=== PATIENT | male | born 1940 | race Caucasian/White ===

== ENCOUNTER → 2017-11-03 | Outpatient (CLI) | payer OTHER, MEDICARE ==
[2017-11-03 15:28] LABS: ABSOLUTE NEUTROPHILS 5.3 thou/uL (1.4-8.2); BASOPHILS 1.3 % (0.0-2.0); EOSINOPHILS 6.5 % (0.0-3.0); HEMATOCRIT 44.2 % (42.0-52.0); HEMOGLOBIN 13.9 gm/dL (14.0-18.0); LYMPHOCYTES 18.8 % (24.0-44.0); MCH 24.4 pg (26.0-34.0); MCHC 31.4 g/dL (28.0-37.0); MCV 77.5 fL (80.0-100.0); MONOCYTES 11.2 % (1.0-8.0); PLATELET COUNT 189 thou/uL (150-400); POLYS 62.2 % (36.0-66.0); RDW 17.5 % (10.5-14.5); WBC 8.5 thou/uL (4.0-11.0)
[2017-11-03 15:31] LABS: MANUAL DIFF NO
[2017-11-03 15:50] LABS: URIC ACID* 12.2 mg/dL (2.6-7.2)
== END ==
LOC: SEN 08-02 13:55
PROVIDERS: Registered Nurse
DX: M19.031 Primary osteoarthritis, right wrist (principal)

== ENCOUNTER 2017-12-10 15:37 | Inpatient (IN) | payer OTHER, MEDICARE ==
[~2017-12-10] VITALS: Ht 182.9 cm; Wt 149.7 kg
--- NOTE | ~2017-12-10 | EKG ---
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
[2017-12-10 15:38] VITALS: BP 106/73
[2017-12-10 16:37] LABS: ABSOLUTE NEUTROPHILS 8.4 thou/uL (1.4-8.2); BASOPHILS 0.9 % (0.0-2.0); EOSINOPHILS 1.5 % (0.0-3.0); HEMATOCRIT 42.8 % (42.0-52.0); HEMOGLOBIN 13.5 gm/dL (14.0-18.0); LYMPHOCYTES 8.2 % (24.0-44.0); MCH 24.6 pg (26.0-34.0); MCHC 31.6 g/dL (28.0-37.0); MCV 77.9 fL (80.0-100.0); PLATELET COUNT 173 thou/uL (150-400); POLYS 82.4 % (36.0-66.0); RDW 18.7 % (10.5-14.5); WBC 10.2 thou/uL (4.0-11.0)
[2017-12-10 16:45] LABS: ANION GAP 7 mmol/L (7-16); BUN 45 mg/dL (7-18); CALCIUM 9.4 mg/dL (8.5-10.1); CHLORIDE 99 mmol/L (98-107); CO2 33 mmol/L (21-32); CREATININE 1.8 mg/dL (0.7-1.3); GLUCOSE 157 mg/dL (74-106); POTASSIUM 3.2 mmol/L (3.5-5.1); SODIUM 139 mmol/L (136-145)
[2017-12-10 16:54] LABS: ALBUMIN 3.4 g/dL (3.4-5.0); SGOT 15 U/L (15-37); SGPT 22 U/L (30-65); TOTAL BILIRUBIN 0.5 mg/dL (<0.1-1.0); TROPONIN-I < 0.04 ng/mL (<0.06)
[2017-12-10 17:00] LABS: INR 1.6; PROTIME 16.1 Seconds (9.3-11.4)
[2017-12-10] MEDS ORDERED: LASIX 40 MG TAB40 M2 PO (17:10)
[2017-12-10] MEDS ORDERED: METOLAZONE 2.52.5 M1 PO (17:10)
[2017-12-10] MEDS ORDERED: VENTOLIN HFA 1818 GM INH (17:10)
[2017-12-10] MEDS ORDERED: VESICARE 5 MG TA5 MG PO (17:10)
[2017-12-10] MEDS ORDERED: PACERONE 200 M200 M1 PO (17:10)
[2017-12-10] MEDS ORDERED: ZOLOFT25 MG PO (17:10)
[2017-12-10] MEDS ORDERED: GLUCOTROL5 MG PO (17:10)
[2017-12-10] MEDS ORDERED: TOPROL XL25 MG PO (17:11)
[2017-12-10] MEDS ORDERED: LIPITOR80 MG PO (17:11)
[2017-12-10] MEDS ORDERED: XARELTO20 MG PO (17:11)
[2017-12-10] MEDS ORDERED: PROTONIX40 M1 PO (17:11)
[2017-12-10] MEDS ORDERED: VITAMIN D2000 UNIT PO (17:11)
[2017-12-10] MEDS ORDERED: ALDACTONE25 MG PO (17:12)
[2017-12-10] MEDS ORDERED: AMBIEN 5 MG TABL5 M1 PO (17:12)
[2017-12-10] MEDS ORDERED: XANAX 0.5 MG0.5 MG PO (17:12)
[2017-12-10] MEDS ORDERED: NEURONTIN 300300 M1 PO (17:12)
[2017-12-10 20:34] VITALS: BP 114/63
[2017-12-10 21:25] VITALS: BP 114/60
[2017-12-10 22:19] VITALS: BP 121/68
[2017-12-10 23:51] VITALS: BP 134/57
[2017-12-11 04:05] VITALS: BP 119/60
[2017-12-11 05:40] LABS: HEMATOCRIT 38.3 % (42.0-52.0); HEMOGLOBIN 12.2 gm/dL (14.0-18.0); MCH 24.8 pg (26.0-34.0); MCHC 31.8 g/dL (28.0-37.0); MCV 77.8 fL (80.0-100.0); RBC 4.93 mil/uL (4.50-6.00); RDW 18.6 % (10.5-14.5); WBC 7.9 thou/uL (4.0-11.0)
[2017-12-11 05:53] LABS: CALCIUM 8.4 mg/dL (8.5-10.1); CREATININE 1.6 mg/dL (0.7-1.3); POTASSIUM 3.6 mmol/L (3.5-5.1)
[2017-12-11 08:00] VITALS: BP 120/58
[2017-12-11 16:14] VITALS: BP 122/60; BP 127/68
[2017-12-11 18:56] VITALS: BP 121/64
[2017-12-12 03:47] VITALS: BP 137/70
[2017-12-12 06:42] LABS: ABSOLUTE NEUTROPHILS 6.9 thou/uL (1.4-8.2); BASOPHILS 1.2 % (0.0-2.0); EOSINOPHILS 4.2 % (0.0-3.0); HEMATOCRIT 38.1 % (42.0-52.0); LYMPHOCYTES 10.9 % (24.0-44.0); MCH 24.5 pg (26.0-34.0); MCHC 31.5 g/dL (28.0-37.0); MCV 77.8 fL (80.0-100.0); MONOCYTES 9.1 % (1.0-8.0); PLATELET COUNT 144 thou/uL (150-400); POLYS 74.6 % (36.0-66.0); RDW 18.3 % (10.5-14.5); WBC 9.3 thou/uL (4.0-11.0)
[2017-12-12 06:53] LABS: CREATININE 1.5 mg/dL (0.7-1.3); POTASSIUM 3.2 mmol/L (3.5-5.1)
[2017-12-12 09:09] VITALS: BP 132/67
[2017-12-12 15:24] VITALS: BP 110/70
[2017-12-12 19:36] VITALS: BP 132/67
[2017-12-13 03:50] VITALS: BP 121/65
[2017-12-13 04:38] LABS: CALCIUM 8.2 mg/dL (8.5-10.1); CREATININE 1.3 mg/dL (0.7-1.3); POTASSIUM 3.1 mmol/L (3.5-5.1)
[2017-12-13 06:55] LABS: ABSOLUTE NEUTROPHILS 9.4 thou/uL (1.4-8.2); BASOPHILS 1.1 % (0.0-2.0); EOSINOPHILS 2.2 % (0.0-3.0); HEMATOCRIT 39.2 % (42.0-52.0); HEMOGLOBIN 12.4 gm/dL (14.0-18.0); LYMPHOCYTES 5.3 % (24.0-44.0); MCH 24.7 pg (26.0-34.0); MCHC 31.5 g/dL (28.0-37.0); MCV 78.3 fL (80.0-100.0); MONOCYTES 9.3 % (1.0-8.0); PLATELET COUNT 146 thou/uL (150-400); POLYS 82.1 % (36.0-66.0); RBC 5.01 mil/uL (4.50-6.00); RDW 18.4 % (10.5-14.5); WBC 11.4 thou/uL (4.0-11.0)
[2017-12-13 08:00] VITALS: BP 144/85
[2017-12-13] MEDS ORDERED: AZITHROMYCIN 2250 MG PO (08:50)
[2017-12-13] MEDS ORDERED: KEFLEX500 M1 PO (08:50)
[2017-12-13 11:46] VITALS: BP 144/85
[2017-12-13 11:55] VITALS: BP 144/85
[2017-12-13 13:03] VITALS: BP 144/85
== END 2017-12-13 15:45 | disposition home health service (06) | DRG 871 ==
LOC: ER 15:37 → EROBS 19:37 → 4N 19:37
PROVIDERS: Family Medicine; Nurse Practitioner Family; Physician Assistant
DX: A41.9 Sepsis, unspecified organism (principal); J18.9 Pneumonia, unspecified organism; J96.00 Acute respiratory failure, unspecified whether with hypoxia or hypercapnia; N17.9 Acute kidney failure, unspecified; Z68.41 Body mass index [BMI] 40.0-44.9, adult; I10 Essential (primary) hypertension; E87.6 Hypokalemia; I25.10 Atherosclerotic heart disease of native coronary artery without angina pectoris; E66.01 Morbid (severe) obesity due to excess calories; I48.91 Unspecified atrial fibrillation; Z96.653 Presence of artificial knee joint, bilateral; Z96.649 Presence of unspecified artificial hip joint; F32.9 Major depressive disorder, single episode, unspecified; E11.9 Type 2 diabetes mellitus without complications; F41.9 Anxiety disorder, unspecified; Z90.5 Acquired absence of kidney; I25.2 Old myocardial infarction; Z95.5 Presence of coronary angioplasty implant and graft; Z87.891 Personal history of nicotine dependence; Z86.718 Personal history of other venous thrombosis and embolism
CPT/HCPCS: 10790

== ENCOUNTER 2018-01-16 06:00 | Inpatient (IN) | payer OTHER, MEDICARE ==
[2018-01-16] VITALS (17 sets, daily range): BP systolic 122–152; BP diastolic 66–98
[~2018-01-16] VITALS: Ht 182.9 cm; Wt 138.2 kg
--- NOTE | ~2018-01-16 | HC ---
[facility] [place] [address] CONSULTATION Name: JOHN ORTIZ Room #: 238-P ADM IN M.R.#: [id number] Admission: 01/16/18 Attend Phys: Debora Yuan MD Discharge: Date of : 38 Report #: [id number] THIS REPORT FOR: //name// CC: Tushar Yuan MD DATE OF SERVICE: 01/16/2018 PULMONARY CONSULTATION REFERRING PROVIDER: Dr. Yuan. REASON FOR CONSULTATION: Hypercapnic respiratory failure. CHIEF COMPLAINT: Shortness of breath. HISTORY OF PRESENT ILLNESS: Our group was asked to see the patient in consultation while hospitalized at [facility], presented to our Emergency Department early this morning, brought in by EMS for shortness of breath, had been recently seen in the hospital about one month ago for similar symptoms of underlying COPD. The patient notes some cough, unable to clear sputum. Notes no fevers, chills or sweats. On presentation to the Emergency Room, with hypercapnic and severe respiratory distress with an elevated B-type natriuretic peptide and chest x-ray which revealed some scattered interstitial opacities suggestive possibly of some pulmonary edema. While in the Emergency Department, the patient as mentioned was placed on a BiPAP, Rocephin, azithromycin and Lasix. The patient was much more comfortable in the ICU when I saw him later this morning and denies any chest pain at this time. When queried, the patient states he has no cardiac history, apparently he has a history of prior myocardial infarction and has a pacemaker in place and making his history somewhat unreliable. States he only is on albuterol inhaler at home, cannot recall any other medicines. OUTPATIENT MEDICATIONS: Include VESIcare, glipizide, metoprolol, Protonix, vitamin D, albuterol, metolazone, amiodarone, Lipitor, spironolactone, alprazolam, gabapentin, sertraline and potassium. PAST MEDICAL HISTORY: 1. Hypertension. 2. Coronary artery disease with prior myocardial infarction. 3. History of hip and knee replacements. 4. History of sick sinus syndrome, status post pacer defibrillator. 5. Morbid obesity. 6. The patient denies any sleep apnea history. [facility] [address] [place] [address] CONSULTATION Name: JOHN ORTIZ Room #: 238-P [facility] IN ..#: [id number] Admission: 01/16/18 Attend Phys: Debora Yuna MD Discharge: Date of : 38 Report #: [id number] SOCIAL HISTORY: States he is an ex-smoker, quitting over 10 years ago. Rare alcohol consumption. Lives with family. Retired. FAMILY HISTORY: Not pertinent at this time and difficult to obtain. REVIEW OF SYSTEMS: CONSTITUTIONAL: No fever, chills or sweats. ENT: No upper respiratory congestion. CARDIOVASCULAR: No chest pains or palpitations. RESPIRATORY: Some cough and shortness of breath for the last 3 days, unable to clear any sputum. GASTROINTESTINAL: No nausea, vomiting, diarrhea, constipation or abdominal pain. GENITOURINARY: No dysuria, no frequency or hematuria. INTEGUMENT: Denies any rash. MUSCULOSKELETAL: Some increasing lower extremity edema. PHYSICAL EXAMINATION: VITAL SIGNS: Afebrile, pulse 80s, respiratory rate 20s, blood pressure 133/74. GENERAL: This is an obese elderly male, in no distress, on BiPAP. ENT: Mallampati 3 airway, no thrush. NECK: Supple, no lymphadenopathy. LUNGS: Inspiratory crackles and occasional wheeze. CARDIOVASCULAR: Heart regular. No murmurs noted. ABDOMEN: Soft, obese. No masses. EXTREMITIES: With 2+ edema. LABORATORY DATA: White blood cell count 8000, hemoglobin 13, hematocrit 42, platelet count 133. Arterial blood gas on BiPAP settings 14/6, 60%, revealed pH 7.30, pCO2 of 72, pO2 of , bicarbonate 35. Sodium 139, potassium 4.1, chloride , bicarbonate 34, BUN 25, creatinine 1.4, glucose . ProBNP was 3025. Liver enzymes normal. Chest x-ray revealed hyperinflation with widening of the mediastinum, pulmonary artery enlargement consistent with pulmonary hypertension, cardiomegaly and minimal interstitial changes. IMPRESSION: 1. Acute hypercapnic respiratory failure, likely due to chronic obstructive pulmonary disease with exacerbation. 2. Chronic obstructive pulmonary disease with acute exacerbation. 3. Lower respiratory infection, most consistent with bronchitis. 4. Acute decompensated congestive heart failure. 5. Renal insufficiency, uncertain whether acute or chronic. 6. Encephalopathy. SUGGESTIONS: 1. ICU care. [address] [address] CONSULTATION Name: JOHN ORTIZ Room #: 238-P ADM IN M.R.#: [id number] Admission: 01/16/18 Attend Phys: Debora Yuan MD Discharge: Date of : 38 Report #: [id number] 2. Systemic steroid taper. 3. Bronchodilators. 4. Continue with antimicrobial therapy for now. 5. Nasal swab for respiratory viral panel. 6. Sputum for culture if able. 7. Check echocardiogram. 8. BiPAP at bedtime and p.r.n. 9. Additional recommendations to follow. Thank you for requesting our suggestions. <ELECTRONICALLY SIGNED> By: Alberto Valencia MD 01/21/18 1452 1431 1652 Alberto Valencia MD /nt
--- NOTE | ~2018-01-16 | EKG ---
[address] [place] [address] ELECTROCARDIOGRAM REPORT Name: JOHN ORTIZ Room #: 238-P ADM IN M.R.#: [id number] Admission: 01/16/18 Attend Phys: Debora Yuan MD Discharge: Date of : 38 Report #: [id number] THIS REPORT FOR: //name// [facility] Test Date: 2018-01-20 Test Time: 14:38:47 Pat Name: JOHN ORTIZ Department: Room: 238 P Gender: M Director Operations: Tanja CEDILLO : 1940 Requested By: Andi Prather Order Number: [id number] MD: Abundio Vallejo Measurements Intervals [place] Rate: 117 P: DC: QRS: -89 QRSD: 167 T: 92 QT: 450 QTc: 628 Interpretive Statements Wide complex tachycardia Right bundle branch block No previous ECGs available for comparison Electronically Signed On 01-21-2018 8:11:05 TAPPER OPERATOR by Abundio Vallejo [email or web address] <ELECTRONICALLY SIGNED> By: Abundio Vallejo MD, [facility] 01/21/18 0811 1438 1438 Abundio Vallejo MD, FACC /EPI
--- NOTE | ~2018-01-16 | 2DMMODE ---
[facility] [employer] [place] [address] 2 D/M-MODE ECHOCARDIOGRAM Name: JOHN ORTIZ Room #: 243-P ADM IN M.R.#: [id number] Admission: 01/16/18 Attend Phys: Debora Yuan MD Discharge: Date of : 38 Date of Service: 01/17/18 1131 Report #: [id number] THIS REPORT FOR: //name// APPROVED REPORT Study performed: 01/17/2018 10:18:44 EXAM: Comprehensive 2D, Doppler, and color-flow Echocardiogram Patient Location: ICU Room #: 243 Status: routine BSA: 2.58 HR: 80 bpm BP: 133/77 mmHg Rhythm: Pacemaker Other Information Study Quality: Fair Technically limited study due to morbid obesity and limited mobility. Indications CHF. Hx: NE, stent, COPD, CHF, pacemaker, obesity, HTN Echo Enhancing Agent Indication: Endocardial border delineation Agent(s) / Amount(s) Used: Definity 4 cc 2D Dimensions LVEF(%): 17.50 (>50%) IVSd: 7.86 (7-11mm) LVOT Diam: 21.29 (18-24mm) LVDd: 66.69 mm PWd: 9.94 (7-11mm) LVDs: 61.28 (25-40mm) Aortic Root: 36.43 mm Johnson's LVEF: 17.50 % Volumes Left Atrial Volume (Systole) Single Plane 4CH: 57.85 mL Single Plane 2CH: 126.58 mL LA ESV Index: 37.00 mL/m2 Aortic Valve AoV Peak Terence.: 1.45 m/s AO Peak Gr.: 8.43 mmHg LVOT Max P.73 mmHg [facility] [address] [place] [address] 2 D/M-MODE ECHOCARDIOGRAM Name: JOHN ORTIZ Room #: [facility] ADM IN ..#: [id number] Admission: 01/16/18 Attend Phys: Debora Yuan MD Discharge: Date of : 38 Date of Service: 01/17/18 1131 Report #: [id number] LVOT Max V: 0.66 m/s GEOVANNI Vmax: 1.61 cm2 Mitral Valve E/A Ratio: 1.2 MV Decel. Time: 95.22 ms MV E Max Terence.: 1.04 m/s MV A Terence.: 0.86 m/s MV PHT: 27.61 ms IVRT: 103.81 ms Tricuspid Valve TR Peak Terence.: 3.26 m/s RAP Estimate: 15.00 mmHg TR Peak Gr.: 42.49 mmHg PA Pressure: 57.00 mmHg Left Ventricle Left ventricle is dilated. There is normal left ventricular wall thickness. Left ventricular systolic function is severely decreased. LVEF is 20-25%. Moderate diastolic dysfunction is present (pseudonormal filling). Right Ventricle Right ventricle is not well visualized. Atria Left atrium is dilated. Right atrium is dilated. Aortic Valve The aortic valve is not well visualized but appears sclerotic. Mild aortic regurgitation. There is no aortic valvular stenosis. Mitral Valve The mitral valve is normal in structure. Mild mitral annular calcification. Moderate mitral regurgitation. No evidence of mitral valve stenosis. Tricuspid Valve The tricuspid valve is normal in structure. Moderate tricuspid regurgitation. Estimated PAP is 55-60mmHg. Pulmonic Valve Pulmonic valve is not well visualized. Great Vessels The aortic root is normal in size. Ascending aorta is not well [facility] [address] [address] 2 D/M-MODE ECHOCARDIOGRAM Name: JOHN ORTIZ Room #: 243-P ADM IN .R.#: [id number] Admission: 01/16/18 Attend Phys: Debora Yuan MD Discharge: Date of : 38 Date of Service: 01/17/18 1131 Report #: [id number] visualized. IVC is dilated and collapses <50% with inspiration. Pericardium There is no pericardial effusion. <Conclusion> Left ventricle is dilated. Left ventricular systolic function is severely decreased. LVEF is 20-25%. Moderate diastolic dysfunction is present (pseudonormal filling). Right ventricle is not well visualized. Left atrium is dilated. Right atrium is dilated. The aortic valve is not well visualized but appears sclerotic. Mild aortic regurgitation. Moderate mitral regurgitation. Moderate tricuspid regurgitation. Estimated PAP is 55-60mmHg. IVC is dilated and collapses <50% with inspiration. There is no pericardial effusion. <ELECTRONICALLY SIGNED> By: Jm Healy MD, FACC 01/17/18 1131 1131 1131 Jm Healy MD, FACC /INF
--- NOTE | ~2018-01-16 | EKG ---
[place] [address] [address] [facility] [place] [address] ELECTROCARDIOGRAM REPORT Name: JOHN ORTIZ Room #: 243-P ADM IN M.R.#: [id number] Admission: 01/16/18 Attend Phys: Debora Yuan MD Discharge: Date of : 38 Report #: [id number] THIS REPORT FOR: //name// 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 : 1940 Requested By: Roxie Deleon Order Number: [id number] MD: Corbin Rai Measurements Intervals [place] Rate: 106 P: 257 ME: 153 QRS: 254 QRSD: 169 T: 70 QT: 370 QTc: 492 Interpretive Statements Ventricular-paced complexes No further analysis attempted due to paced rhythm Compared to ECG 12/10/2017 15:49:12 Atrial-sensed ventricular-paced complex(es) or rhythm no longer present Electronically Signed On 01-16-2018 10:13:18 FORM LAYER by Corbin Rai [email or web address] <ELECTRONICALLY SIGNED> By: Corbin Rai MD 01/16/18 1013 2 2 Corbin Rai MD /PASTORA
--- NOTE | ~2018-01-16 | H ---
[facility] [place] [address] HISTORY AND PHYSICAL Name: JOHN ORTIZ Room #: 359-P [facility] IN M.R.#: [id number] Admission: 01/16/18 Attend Phys: Debora Yuan MD Discharge: 01/24/18 Date of : 38 Report #: [id number] THIS REPORT FOR: //name// CC: Tushar Yuan DATE OF SERVICE: 01/16/2018 CHIEF COMPLAINT: Shortness of air. HISTORY OF PRESENT ILLNESS: The patient is a 77-year-old male who presented to ER with shortness of breath. He was brought by EMS. The patient reports worsening of the cough for past 3 days. He stated that the cough is nonproductive. He had increasing shortness of breath beginning yesterday. Of note, recently he was at [facility] in November, was diagnosed with pneumonia, started on oxygen at home. He apparently had 2 liters of oxygen at home. The patient is a very poor historian and he is confused. He cannot give me a good medical history. He usually goes to [facility] and he was not even aware that this time he is at [facility]. He reports history of COPD due to smoking; however, stated, quit 15 years ago, history of CHF; however, cannot specify if it is systolic or diastolic. History of OK with stent placement, pacemaker and defibrillator. Also kidney cancer. The patient was hypoxic, hypercapnic in ER. He was placed on BiPAP in the ER. He was given breathing treatment and was given Solu-Medrol apparently by EMS 125 mg. The patient stated that he has chronic leg edema and that he is not ambulatory. He stated has chronic weakness in the legs. The patient cannot recall when he walked last time. He stated that he used to walk with walker, but not recently and he cannot really tell me when he walked last time. He lives with his significant other and stated that significant other helped him. The patient now is in ICU. He is saying that he is feeling better. PAST MEDICAL HISTORY: Obtained from the records and talking to the patient. As stated above, the patient is a very poor historian and he usually goes to [facility]. He has history of hypertension, OK with stent placement, hip replacement, knee replacement, atrial fibrillation, pacemaker and defibrillator, morbid obesity, chronic weakness in the legs, nonambulatory. Chronic leg edema. Injury to the right leg with skin graft, cannot recall when it happened. He could not tell me when he had OK and when stent was placed. He apparently has history of carpal tunnel surgery, chronic leg swelling. MEDICATIONS: His reported medications are amiodarone, metolazone, albuterol sulfate as needed, VESIcare, glipizide, metoprolol, Protonix, vitamin D3, Lipitor, Xarelto, spironolactone, alprazolam, gabapentin, sertraline, potassium supplements. Of note, it is stated that the patient is telling me that he is not diabetic. [address] [address] HISTORY AND PHYSICAL Name: JOHN ORTIZ Room #: 359-P [facility] IN M.R.#: [id number] Admission: 01/16/18 Attend Phys: Debora Yuan MD Discharge: 01/24/18 Date of : 38 Report #: [id number] ALLERGIES: The patient reports no allergies. SOCIAL HISTORY: He smokes cigarettes, but stated that he stopped smoking 15 years ago. Stated that drinks alcohol very socially. Denies any illicit drug use. He lives with significant other. FAMILY HISTORY: The patient cannot provide to me. He stated that his family are healthy. REVIEW OF SYSTEMS: As stated in H and P. He complains of cough, congestion, worsening of the shortness of breath for past 3 days. He is telling me that he is not bringing sputum, though he reported to ER that there is white sputum production. Denies any runny nose. No headache or dizziness. Denies any chest pain. He stated that shortness of air was for past 3 days, progressively worse. Denies any abdominal pain, telling me that does not have pain with urination and does not have any diarrhea or constipation. He has chronic swelling in the legs, cannot tell me for how long. He has large skin graft on the right leg from trauma. The patient is not mobile. Please see discussion above. He denies any pain with urination. No nausea or vomiting. He denies any back pain. Has chronic weakness in the legs. PHYSICAL EXAMINATION: VITAL SIGNS: Temperature 97.2, pulse 95, respirations 25, blood pressure between 152/98 and 189/91. GENERAL: The patient is not in any distress. He is awake and alert; however, he is confused. He could tell me that it was month of December and could tell me the year, but could not tell me what day it was. The patient also did not know that he is in [facility] and he could not even tell me his home address. HEENT: Head: Normocephalic. Oral mucosa pink. Tongue is clear without thrush. Pupils are round and equal. NECK: Supple, no JVD, no bruits. LUNGS: Showed very coarse breath sounds with rhonchi and end expiratory wheezes. CARDIAC: S1, S2 normal. Rhythm is regular. Telemetry shows paced rhythm with underlying AFib. ABDOMEN: Morbidly obese, soft, but not tender on palpation, not distended. Bowel sounds normoactive. EXTREMITIES: Showed 4+ edema on the legs, pitting edema. There is chronic skin discoloration on the legs, but no warmth, no signs of cellulitis. On right leg, there is a large skin graft, which is well healed. I was not able to palpate peripheral pulses possibly because of the swelling. The patient's feet are very swollen. Examination of the skin shows redness in his groin area. NEUROLOGICAL: The patient is confused. Please see discussion above. He has good strength in his arms. He was able to move the legs in the bed as well and raise them over the bed. [address] [address] HISTORY AND PHYSICAL Name: JOHN ORTIZ Room #: 359-P [facility] IN M.R.#: [id number] Admission: 01/16/18 Attend Phys: Debora Yuan MD Discharge: 01/24/18 Date of : 38 Report #: [id number] LABORATORY AND DIAGNOSTIC DATA: ABG done in the ER when he arrived, pH was 7.285, pCO2 of 73, pO2 of 67.9. He was on 3 liters of nasal cannula. He was placed on BiPAP dose. ABG was done on 6:10 and then repeated ABG on 7:55 showed pH 7.303, pCO2 72.3, pO2 132.5, that was on 60% FiO2 with BiPAP setting 06/27. His sodium was 139, potassium 4.1, BUN 25, creatinine 1.4, glucose 154, calcium 9.3, uric acid 4.2, alkaline phosphatase 148, ALT 28, AST 35. Lactic acid 1.7, troponin 0.05. ProBNP is 3095. CRP 11.4, WBC 8.0, hemoglobin 13.3, platelets 133,000. INR was 1.6. IMPRESSION AND PLAN: 1. Acute hypoxic hypercapnic respiratory failure. 2. Chronic obstructive pulmonary disease exacerbation. 3. Bronchitis with bronchospasm. No infiltrate on chest x-ray. 4. Elevated BNP. 5. Significant leg edema. 6. Renal insufficiency. 7. Volume overload. 8. Confused, baseline unknown. PLAN: 1. The patient admitted to ICU. We will put the patient on BiPAP. We will give breathing treatment. We will give Xopenex due to history of AFib. Atrovent. We will give steroids. We will check hemoglobin A1c. Give Lasix for volume overload. We will get records from [facility]. The patient has leg edema. We will check venous Doppler ultrasound, though he is on Xarelto, but this patient's confusion is not clear if the patient was getting Xarelto or not. 2. Also we will check CAT scan of the head due to confusion. Blood cultures were obtained in Emergency Department. We will put on Solu-Medrol, sliding scale of insulin. A consult was placed for surgeon partner, Dr. Valencia. <ELECTRONICALLY SIGNED> By: Debora Yuan MD 02/13/18 1524 1051 1138 Debora Yuan MD /nt
[~2018-01-16 06:00] MED LIST: ALDACTONE25 MG PO; AMBIEN 5 MG TABL5 M1 PO; AZITHROMYCIN 2250 MG PO; GLUCOTROL5 MG PO; KEFLEX500 M1 PO; LASIX 40 MG TAB40 M2 PO; LIPITOR80 MG PO; METOLAZONE 2.52.5 M1 PO; NEURONTIN 300300 M1 PO; PACERONE 200 M200 M1 PO; PROTONIX40 M1 PO; TOPROL XL25 MG PO; VENTOLIN HFA 1818 GM INH; VESICARE 5 MG TA5 MG PO; VITAMIN D2000 UNIT PO; XANAX 0.5 MG0.5 MG PO; XARELTO20 MG PO; ZOLOFT25 MG PO
[2018-01-16] MEDS ORDERED: KLOR-CON 1010 MEQ PO (06:11)
[2018-01-16] MEDS ORDERED: VESICARE 5 MG TA5 M1 PO (06:14)
[2018-01-16 06:18] LABS: BE(vivo) 4.8 mmol/L (-2 to +3); HCO3 33.9 mmol/L (22.0-26.0); PO2 67.9 mmHg (80.0-100.0); pH 7.285 (7.360-7.450); sO2 90.6 % (92.0-98.0)
[2018-01-16 06:41] LABS: ABSOLUTE NEUTROPHILS 5.9 thou/uL (1.4-8.2); BASOPHILS 0.9 % (0.0-2.0); HEMATOCRIT 42.3 % (42.0-52.0); HEMOGLOBIN 13.3 gm/dL (14.0-18.0); LYMPHOCYTES 13.7 % (24.0-44.0); MCH 25.4 pg (26.0-34.0); MCHC 31.4 g/dL (28.0-37.0); MCV 80.8 fL (80.0-100.0); MONOCYTES 9.2 % (1.0-8.0); PLATELET COUNT 133 thou/uL (150-400); POLYS 73.2 % (36.0-66.0); RBC 5.24 mil/uL (4.50-6.00)
[2018-01-16 06:50] LABS: CALCIUM 9.3 mg/dL (8.5-10.1); CREATININE 1.4 mg/dL (0.7-1.3); POTASSIUM 4.1 mmol/L (3.5-5.1)
[2018-01-16 06:58] LABS: TROPONIN-I 0.05 ng/mL (<0.06)
[2018-01-16 07:03] LABS: ALBUMIN 3.6 g/dL (3.4-5.0); DIRECT BILIRUBIN 0.3 mg/dL (<0.1-0.3); TOTAL BILIRUBIN 0.7 mg/dL (<0.1-1.0); TOTAL PROTEIN 7.7 g/dL (6.4-8.2)
[2018-01-16 08:02] LABS: BE(vivo) 6.2 mmol/L (-2 to +3); PO2 132.5 mmHg (80.0-100.0); sO2 98.3 % (92.0-98.0)
[2018-01-16 08:03] LABS: PCO2 72.3 mmHg (35.0-45.0); pH 7.303 (7.360-7.450)
[2018-01-16 10:21] LABS: URINE BILIRUBIN NEGATIVE (Negative); URINE BLOOD NEGATIVE (Negative); URINE CLARITY CLEAR; URINE COLOR YELLOW; URINE GLUCOSE-RANDOM* NEGATIVE (Negative); URINE KETONES NEGATIVE (Negative); URINE LEUKOCYTES NEGATIVE (Negative); URINE NITRITE NEGATIVE (Negative); URINE PROTEIN (DIPSTICK) 2+ (Negative); URINE SPECIFIC GRAVITY >= 1.030 (1.005-1.035)
[2018-01-16 10:29] LABS: HYALINE CASTS 0-3 Few /LPF (None Seen)
[2018-01-16 10:30] LABS: BACTERIA 1-9 Few /HPF (None Seen); CRYSTALS None Seen /LPF (None Seen); SQUAMOUS None Seen /LPF (0-3); URINE RBC None Seen /HPF (0-2); URINE WBC None Seen /HPF (0-5)
[2018-01-16 19:10] LABS: GLYCOHEMOGLOBIN (HGB A1C) 5.5 % (4.8-5.6)
[2018-01-17] VITALS (13 sets, daily range): BP systolic 116–145; BP diastolic 72–92
[2018-01-17 05:03] LABS: CALCIUM 8.3 mg/dL (8.5-10.1); CREATININE 1.3 mg/dL (0.7-1.3); POTASSIUM 4.2 mmol/L (3.5-5.1)
[2018-01-17 05:08] LABS: HEMATOCRIT 37.7 % (42.0-52.0); HEMOGLOBIN 11.6 gm/dL (14.0-18.0); MCHC 30.9 g/dL (28.0-37.0); MCV 80.9 fL (80.0-100.0); RBC 4.66 mil/uL (4.50-6.00); RDW 19.4 % (10.5-14.5); WBC 4.5 thou/uL (4.0-11.0)
[2018-01-17 05:29] LABS: BE(vivo) 9.8 mmol/L (-2 to +3); HCO3 39.1 mmol/L (22.0-26.0); PO2 82.5 mmHg (80.0-100.0); sO2 94.6 % (92.0-98.0)
[2018-01-17 05:30] LABS: PCO2 79.6 mmHg (35.0-45.0); pH 7.309 (7.360-7.450)
[2018-01-18 04:00] VITALS: BP 155/88
[2018-01-18 08:25] VITALS: BP 156/89
[2018-01-18 12:06] VITALS: BP 118/92
[2018-01-18 17:31] VITALS: BP 120/89
[2018-01-18 20:15] VITALS: BP 133/93
[2018-01-19] VITALS (29 sets, daily range): BP systolic 124–142; BP diastolic 69–105
[2018-01-19 06:45] LABS: CALCIUM 8.5 mg/dL (8.5-10.1); CREATININE 1.8 mg/dL (0.7-1.3); POTASSIUM 5.1 mmol/L (3.5-5.1)
[2018-01-19 07:44] LABS: BE(vivo) 5.5 mmol/L (-2 to +3); HCO3 38.1 mmol/L (22.0-26.0); PO2 64.2 mmHg (80.0-100.0); sO2 84.8 % (92.0-98.0)
[2018-01-19 07:48] LABS: PCO2 105.8 mmHg (35.0-45.0); pH 7.174 (7.360-7.450)
[2018-01-19 08:47] LABS: BE(vivo) 4.8 mmol/L (-2 to +3); HCO3 36.7 mmol/L (22.0-26.0); PCO2 98.6 mmHg (35.0-45.0); PO2 124.9 mmHg (80.0-100.0); pH 7.189 (7.360-7.450); sO2 97.4 % (92.0-98.0)
[2018-01-19 17:09] LABS: BE(vivo) 9.4 mmol/L (-2 to +3); HCO3 38.6 mmol/L (22.0-26.0); PO2 66.8 mmHg (80.0-100.0); sO2 91.1 % (92.0-98.0)
[2018-01-19 17:10] LABS: PCO2 74.8 mmHg (35.0-45.0)
[2018-01-20] VITALS (52 sets, daily range): BP systolic 92–147; BP diastolic 68–113
[2018-01-20 05:25] LABS: HCO3 41.7 mmol/L (22.0-26.0); PCO2 60.6 mmHg (35.0-45.0); PO2 73.5 mmHg (80.0-100.0); pH 7.456 (7.360-7.450)
[2018-01-21] VITALS (48 sets, daily range): BP systolic 122–159; BP diastolic 68–147
[2018-01-21 05:55] LABS: ABSOLUTE NEUTROPHILS 5.5 thou/uL (1.4-8.2); BASOPHILS 0.1 % (0.0-2.0); HEMATOCRIT 38.9 % (42.0-52.0); HEMOGLOBIN 12.2 gm/dL (14.0-18.0); LYMPHOCYTES 5.2 % (24.0-44.0); MCHC 31.4 g/dL (28.0-37.0); MCV 79.6 fL (80.0-100.0); MONOCYTES 4.8 % (1.0-8.0); PLATELET COUNT 136 thou/uL (150-400); POLYS 89.9 % (36.0-66.0); RBC 4.89 mil/uL (4.50-6.00); WBC 6.2 thou/uL (4.0-11.0)
[2018-01-21 06:06] LABS: ALBUMIN 2.7 g/dL (3.4-5.0); BUN 71 mg/dL (7-18); CALCIUM 8.8 mg/dL (8.5-10.1); CHLORIDE 98 mmol/L (98-107); CREATININE 1.7 mg/dL (0.7-1.3); GLUCOSE 131 mg/dL (74-106); POTASSIUM 3.4 mmol/L (3.5-5.1); SGOT 35 U/L (15-37); SGPT 54 U/L (30-65); SODIUM 145 mmol/L (136-145); TOTAL BILIRUBIN 0.8 mg/dL (<0.1-1.0)
[2018-01-21 06:31] LABS: CO2 > 45 mmol/L (21-32)
[2018-01-21 09:24] LABS: BE(vivo) 17.6 mmol/L (-2 to +3); HCO3 46.3 mmol/L (22.0-26.0); PCO2 74.2 mmHg (35.0-45.0); PO2 73.3 mmHg (80.0-100.0); pH 7.413 (7.360-7.450); sO2 94.2 % (92.0-98.0)
[2018-01-22] VITALS (23 sets, daily range): BP systolic 121–151; BP diastolic 70–102
[2018-01-23 03:45] VITALS: BP 122/64
[2018-01-23 06:08] LABS: HEMATOCRIT 39.1 % (42.0-52.0); HEMOGLOBIN 12.3 gm/dL (14.0-18.0); MCH 24.9 pg (26.0-34.0); MCHC 31.5 g/dL (28.0-37.0); MCV 79.1 fL (80.0-100.0); RBC 4.95 mil/uL (4.50-6.00); RDW 18.5 % (10.5-14.5); WBC 8.7 thou/uL (4.0-11.0)
[2018-01-23 06:31] LABS: ALBUMIN 2.5 g/dL (3.4-5.0); BUN 66 mg/dL (7-18); CALCIUM 8.3 mg/dL (8.5-10.1); CHLORIDE 96 mmol/L (98-107); CREATININE 1.4 mg/dL (0.7-1.3); GLUCOSE 112 mg/dL (74-106); POTASSIUM 3.1 mmol/L (3.5-5.1); SGOT 28 U/L (15-37); SGPT 41 U/L (30-65); SODIUM 143 mmol/L (136-145); TOTAL BILIRUBIN 0.7 mg/dL (<0.1-1.0); TOTAL PROTEIN 5.5 g/dL (6.4-8.2)
[2018-01-23 06:41] LABS: CO2 > 45 mmol/L (21-32)
[2018-01-23 08:52] VITALS: BP 122/70
[2018-01-23 15:29] VITALS: BP 134/86
[2018-01-23 19:30] VITALS: BP 150/85
[2018-01-24 00:15] VITALS: BP 78/38
[2018-01-24 01:15] VITALS: BP 90/47
[2018-01-24 03:55] VITALS: BP 152/84
[2018-01-24 08:16] VITALS: BP 127/75
[2018-01-24 08:39] LABS: HEMATOCRIT 42.7 % (42.0-52.0); HEMOGLOBIN 13.4 gm/dL (14.0-18.0); MCH 24.9 pg (26.0-34.0); MCHC 31.3 g/dL (28.0-37.0); MCV 79.3 fL (80.0-100.0); RBC 5.39 mil/uL (4.50-6.00); RDW 18.9 % (10.5-14.5); WBC 9.1 thou/uL (4.0-11.0)
[2018-01-24 08:54] LABS: ALBUMIN 2.7 g/dL (3.4-5.0); BUN 58 mg/dL (7-18); CALCIUM 8.8 mg/dL (8.5-10.1); CHLORIDE 96 mmol/L (98-107); CREATININE 1.3 mg/dL (0.7-1.3); GLUCOSE 76 mg/dL (74-106); PHOSPHORUS 2.6 mg/dL (2.5-4.9); POTASSIUM 3.1 mmol/L (3.5-5.1); SODIUM 142 mmol/L (136-145)
[2018-01-24 08:56] LABS: CO2 > 45 mmol/L (21-32)
[2018-01-24] MEDS ORDERED: PREDNISONE 20 M20 M1 PO (13:48)
[2018-01-24] MEDS ORDERED: LEVAQUIN 500 M500 M3 PO (13:48)
[2018-01-24 16:02] VITALS: BP 121/76
== END 2018-01-24 16:37 | DRG 291 ==
LOC: ER 06:00 → ICU 07:12 → EROBS 07:12 → ICU 09:56 → 3W 01-17 22:29 → ICU 01-19 10:15 → 3W 01-22 16:55
PROVIDERS: Emergency Medicine; Hospitalist; Internal Medicine; Internal Medicine Pulmonary Disease
PROC: 5A09357 Assistance with Respiratory Ventilation, Less than 24 Consecutive Hours, Continuous Positive Airway Pressure (ICD-10-PCS; principal; 2018-01-17)
PROC: 5A09357 Assistance with Respiratory Ventilation, Less than 24 Consecutive Hours, Continuous Positive Airway Pressure (ICD-10-PCS; 2018-01-18)
PROC: 5A09357 Assistance with Respiratory Ventilation, Less than 24 Consecutive Hours, Continuous Positive Airway Pressure (ICD-10-PCS; 2018-01-19)
PROC: 5A09357 Assistance with Respiratory Ventilation, Less than 24 Consecutive Hours, Continuous Positive Airway Pressure (ICD-10-PCS; 2018-01-20)
PROC: 5A09357 Assistance with Respiratory Ventilation, Less than 24 Consecutive Hours, Continuous Positive Airway Pressure (ICD-10-PCS; 2018-01-22)
PROC: 5A09357 Assistance with Respiratory Ventilation, Less than 24 Consecutive Hours, Continuous Positive Airway Pressure (ICD-10-PCS; 2018-01-23)
DX: I13.0 Hypertensive heart and chronic kidney disease with heart failure and stage 1 through stage 4 chronic kidney disease, or unspecified chronic kidney disease (principal); J96.01 Acute respiratory failure with hypoxia; I50.31 Acute diastolic (congestive) heart failure; G93.40 Encephalopathy, unspecified; J96.02 Acute respiratory failure with hypercapnia; I50.43 Acute on chronic combined systolic (congestive) and diastolic (congestive) heart failure; J44.1 Chronic obstructive pulmonary disease with (acute) exacerbation; Z68.41 Body mass index [BMI] 40.0-44.9, adult; N17.9 Acute kidney failure, unspecified; I42.9 Cardiomyopathy, unspecified; Z95.5 Presence of coronary angioplasty implant and graft; Z96.659 Presence of unspecified artificial knee joint; Z96.649 Presence of unspecified artificial hip joint; I48.91 Unspecified atrial fibrillation; E66.01 Morbid (severe) obesity due to excess calories; I25.10 Atherosclerotic heart disease of native coronary artery without angina pectoris; J22 Unspecified acute lower respiratory infection; G47.33 Obstructive sleep apnea (adult) (pediatric); I87.8 Other specified disorders of veins; D69.6 Thrombocytopenia, unspecified; N18.9 Chronic kidney disease, unspecified; E87.70 Fluid overload, unspecified; Z87.891 Personal history of nicotine dependence; I25.2 Old myocardial infarction; Z95.0 Presence of cardiac pacemaker; Z79.899 Other long term (current) drug therapy
CPT/HCPCS: 10078; 10204; 10779

== ENCOUNTER → 2018-03-10 | Outpatient (CLI) | payer OTHER, MEDICARE ==
[~2018-03-10] MED LIST changes: +KLOR-CON 1010 MEQ PO; +LEVAQUIN 500 M500 M3 PO; +PREDNISONE 20 M20 M1 PO; +VESICARE 5 MG TA5 M1 PO
[2018-03-10 14:20] VITALS: BP 107/63
[2018-03-10 15:42] LABS: ABSOLUTE NEUTROPHILS 6.5 thou/uL (1.4-8.2); BASOPHILS 1.3 % (0.0-2.0); EOSINOPHILS 6.5 % (0.0-3.0); HEMATOCRIT 41.7 % (42.0-52.0); HEMOGLOBIN 13.5 gm/dL (14.0-18.0); LYMPHOCYTES 16.3 % (24.0-44.0); MCH 26.8 pg (26.0-34.0); MCHC 32.3 g/dL (28.0-37.0); MCV 82.9 fL (80.0-100.0); MONOCYTES 9.3 % (1.0-8.0); PLATELET COUNT 135 thou/uL (150-400); POLYS 66.6 % (36.0-66.0); RBC 5.03 mil/uL (4.50-6.00); RDW 19.8 % (10.5-14.5); WBC 9.7 thou/uL (4.0-11.0)
[2018-03-10 15:55] LABS: ALBUMIN 3.2 g/dL (3.4-5.0); ANION GAP 6 mmol/L (7-16); BUN 66 mg/dL (7-18); CALCIUM 9.1 mg/dL (8.5-10.1); CHLORIDE 96 mmol/L (98-107); CHOLESTEROL 221 mg/dL (<200); CO2 36 mmol/L (21-32); CREATININE 2.2 mg/dL (0.7-1.3); GLUCOSE 123 mg/dL (74-106); HDL CHOLESTEROL 43 mg/dL (>40); LDL CHOLESTEROL 125 mg/dL (<100); POTASSIUM 3.3 mmol/L (3.5-5.1); SGOT 15 U/L (15-37); SGPT 17 U/L (30-65); SODIUM 138 mmol/L (136-145); TC:HDL 5.1 Ratio (Not establshd); TOTAL BILIRUBIN 0.8 mg/dL (<0.1-1.0); TRIGLYCERIDE 267 mg/dL (<150); VLDL 53 mg/dL (<40)
[2018-03-10 16:02] LABS: ANISOCYTOSIS 2+
[2018-03-10 16:03] LABS: BURR CELLS OCCASIONAL; OVALOCYTES 1+
== END ==
LOC: SEN
PROVIDERS: Emergency Medicine
DX: I25.10 Atherosclerotic heart disease of native coronary artery without angina pectoris (principal); I21.9 Acute myocardial infarction, unspecified; I11.0 Hypertensive heart disease with heart failure; J44.9 Chronic obstructive pulmonary disease, unspecified; I50.9 Heart failure, unspecified; N28.9 Disorder of kidney and ureter, unspecified; I48.91 Unspecified atrial fibrillation

== ENCOUNTER → 2019-03-23 | Outpatient (CLI) | payer OTHER, MEDICARE | LOC: SEN 10:16 | DX: R41.89 Other symptoms and signs involving cognitive functions and awareness (principal); I13.0 Hypertensive heart and chronic kidney disease with heart failure and stage 1 through stage 4 chronic kidney disease, or unspecified chronic kidney disease; E11.22 Type 2 diabetes mellitus with diabetic chronic kidney disease; N18.3 Chronic kidney disease, stage 3 (moderate); I50.41 Acute combined systolic (congestive) and diastolic (congestive) heart failure; J44.9 Chronic obstructive pulmonary disease, unspecified; F33.41 Major depressive disorder, recurrent, in partial remission; E11.42 Type 2 diabetes mellitus with diabetic polyneuropathy; F51.01 Primary insomnia; I25.10 Atherosclerotic heart disease of native coronary artery without angina pectoris; I48.92 Unspecified atrial flutter; G56.02 Carpal tunnel syndrome, left upper limb; E78.5 Hyperlipidemia, unspecified; E66.8 Other obesity; I48.0 Paroxysmal atrial fibrillation; Z68.41 Body mass index [BMI] 40.0-44.9, adult; Z79.01 Long term (current) use of anticoagulants; Z86.718 Personal history of other venous thrombosis and embolism; Z86.711 Personal history of pulmonary embolism; Z96.652 Presence of left artificial knee joint; Z82.49 Family history of ischemic heart disease and other diseases of the circulatory system; Z83.3 Family history of diabetes mellitus; Z87.891 Personal history of nicotine dependence; Z88.8 Allergy status to other drugs, medicaments and biological substances ==

== ENCOUNTER → 2019-04-05 | Outpatient (CLI) | payer OTHER, MEDICARE | LOC: CAT 13:13 | DX: R41.89 Other symptoms and signs involving cognitive functions and awareness (principal) ==

== ENCOUNTER 2019-08-02 11:43 | Inpatient (IN) | payer OTHER, MEDICARE ==
[2019-08-02] VITALS (27 sets, daily range): BP systolic 86–114; BP diastolic 44–73
[~2019-08-02] VITALS: Ht 185.4 cm; Wt 90.8 kg
--- NOTE | ~2019-08-02 | HC ---
[facility] [place] [address] CONSULTATION Name: JOHN ORTIZ Room #: 350-P [facility] IN ..#: [id number] Admission: 08/02/19 Attend Phys: Germán Carrillo MD Discharge: Date of : 39 Report #: [id number] THIS REPORT FOR: //name// CC: Germán Carrillo Mukesh Akkulugari DATE OF SERVICE: 08/16/2019 HISTORY OF PRESENT ILLNESS: The patient is an 79-year-old male, dependent with basic cares at home, utilizing a Tracy lift with 24-hour care, admitted with increased shortness of breath, noted to have rlofo-mi-lwesxjw congestive heart failure, gsqhc-uo-inryunu hypoxemic respiratory failure, very severe chronic obstructive pulmonary disease, and ipvex-ii-wjxocyv renal failure. He was noted to have mental status changes. He was noted to have significant hypoxemia, some hallucinations noted to be "acting weird" per his caregivers and significant other. O2 sats were in the 70s. He needed to be intubated with prolonged mechanical ventilation. He was seen by Neurology, diagnosed with an encephalopathy. He underwent bronchoscopy noting moderate secretions on 08/14/2019. He has now been extubated, remains confused. He is very weak. 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 He has dysphagia and is on a thickened liquid diet, noted to be mechanical soft honey thickened liquid. We are seeing him in rehabilitation medicine consultation. PAST MEDICAL HISTORY: Includes a right nephrectomy, history of CVA, morbid obesity, chronic lymphedema, bilateral lower extremities, diabetes mellitus, atrial fibrillation, hypertension, OR. PAST SURGICAL HISTORY: Prior surgical history includes bilateral hip surgery apparently replacement. He has had knee replaced and heart stent. HABITS: Former smoker, quit greater than a year ago. No history of alcohol abuse. MEDICATIONS: Please see the full medication listing. ALLERGIES: No known drug allergies. SOCIAL HISTORY: He has been nonambulatory and has been utilizing a Tracy lift for at least the past year. Lives in a house with his significant other. He has a paid caregiver that assists with the Tracy lift transfer and transfer him into a recliner chair that he typically sits in. He then would utilize the urinal and she noted that he would defecated on himself since he is nonambulatory with caregivers cleaning up. He was on a regular diet with thin liquids prior and the caregiver notes that he was stronger than he is now. Also, he was much more appropriate. [address] [address] CONSULTATION Name: JOHN ORTIZ Room #: 350-P [facility] IN [facility].#: [id number] Admission: 08/02/19 Attend Phys: Germán Carrillo MD Discharge: Date of : 39 Report #: [id number] REVIEW OF SYSTEMS: He wants something to drink, did not offer any specific complaints of chest pain, shortness of breath, and abdominal discomfort at this time. He is on nasal prong O2 and was on O2 premorbidly. PHYSICAL EXAMINATION: GENERAL: An obese 79-year-old male, in no obvious distress. He does follow basic 1 step commands. VITAL SIGNS: He is 6 feet 1 inch, weighs 291 pounds. He is on nasal prong O2, currently on 2 liters. NEUROLOGIC: Facies appeared symmetric. He cooperates with basic manual muscle testing. Upper extremity strength is probably a grade 3- to 3/5. Lower extremities is grade 3 to 3+/5. DTRs were trace to 1. Functionally, he was only able to sit at the edge of bed for a few seconds and then he desaturate into the 80s. O2 had to be turned up to 6 liters. In occupational therapy, he tolerated a little better sitting a minute, O2 sat decreased in the 80s and need to be turned from 3 liters to 6 liters. Bed mobility and OT is max assist. ASSESSMENT: An 79-year-old white male with the following problem list: 1. Toxic metabolic encephalopathy, likely with a hypoxic component as well. 2. 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 3. Wpwta-sh-ildwqwt hypoxemic respiratory failure with prolonged mechanical ventilation. 4. Sqeor-tw-xgknfvs congestive heart failure. 5. Fzmzw-gm-ttdwtfa chronic renal insufficiency, this has improved. 6. Pulmonary hypertension. 7. Electrolyte abnormalities. 8. Hypertension. 9. Coronary artery disease with prior stenting. 10. Morbid obesity. 11. History of nephrectomy in the past. 12. Atrial fibrillation. 13. Premorbid mechanical lift usage. PLAN: Difficult situation. He has had a functional decline from his premorbid status with his mental status, confusion, and encephalopathy along with his dysphagia, currently needing honey thickened liquids. He also is much weaker than he was prior, as per discussion with the caregiver. He tends to desaturate with attempted activity. Physical therapy is actually signed off and I am going to ask them to reassess and focus on endurance issues. He did participate with some lower extremity manual muscle testing for me today. He did a little more in occupational therapy. Speech therapy is a major focus with the cognitive issues and the swallowing issues. We will reassess again tomorrow. I am uncertain if he has the tolerance to warrant an acute [address] [place] [address] inpatient rehabilitation stay, but he would benefit from the medical supervision, if he can tolerate the therapies. [facility] [address] [place] [address] CONSULTATION Name: JOHN ORTIZ Room #: 350-P ADM IN M.R.#: [id number] Admission: 08/02/19 Attend Phys: Germán Carrillo MD Discharge: Date of : 39 Report #: [id number] Thank you for asking us to assist in this patient's care. By: [id number] Jean Jenkins MD /PMT
--- NOTE | ~2019-08-02 | HC ---
[facility] [place] [address] CONSULTATION Name: JOHN ORTIZ Room #: 247-P [facility] IN ..#: [id number] Admission: 08/02/19 Attend Phys: Germán Carrillo MD Discharge: Date of : 39 Report #: [id number] THIS REPORT FOR: //name// CC: Germán Mayorga Akkulugari DATE OF SERVICE: 08/02/2019 NEPHROLOGY CONSULTATION REASON FOR CONSULTATION: Chronic kidney disease and oliguria. HISTORY OF PRESENT ILLNESS: This is an 79-year-old with a rather complex medical history. He came into the Emergency Room late morning with dyspnea, which had been progressive. He has chronic dyspnea and chronically wears oxygen. He has been in the hospital previously and had prior intubations and mechanical ventilation. Upon original presentation, he had oxygen saturation of 72% and was hypotensive with a blood pressure of 89/47. He was given some supplemental oxygen and eventually was intubated. He is seen in the Intensive Care Unit at this time on mechanical ventilator. He is currently sedated. He is unable to participate obviously in the history taking or exam due to that. Blood gases will be reviewed below. From a renal standpoint, the patient has documented chronic kidney disease. He is actually followed in the office by one of my associates, Nancy Emerson M.D. Over the past year, he has run creatinine levels anywhere from about 1.3 up to 2.0. Last check in the office was 1.9. Last check here in the hospital was 2.2 in February 2018, although he did measurements in January 2018 from 1.3-1.7. The patient has a history of a prior nephrectomy. I do not have records confirming why that nephrectomy was done as it was done rather remotely. He has had some hypertension and some mild proteinuria. He is normally maintained on 3 different diuretics in the form of furosemide, metolazone, and spironolactone, although the spironolactone is at least partly for suppression of proteinuria. He has chronic edema and chronic lymphedema of the lower extremities. PAST MEDICAL HISTORY: Longstanding morbid obesity. He has a history of hypercapnic respiratory failure and COPD. Older blood gases show he always runs a very high pCO2. He has a history of coronary artery disease. He has had previous myocardial infarction. He has also had previous coronary artery bypass graft surgery. His last echocardiogram was over a year ago and showed 20-25% ejection fraction with multiple dilated chambers, moderate mitral regurg and tricuspid regurg and a high pulmonary artery pressure. His coronary artery bypass graft surgery was in June 2017. He also is having 2 prior CVAs. He has a pacemaker and ICD in place. Prior paroxysmal atrial fibrillation. He has also had deep venous thrombosis in the past, chronically on some anticoagulation. [facility] [address] [place] [address] CONSULTATION Name: JOHN ORTIZ Room #: 247-P ADM IN M.R.#: [id number] Admission: 08/02/19 Attend Phys: Germán Carrillo MD Discharge: Date of : 39 Report #: [id number] MEDICATIONS: Prior to admission appear to be amiodarone 200 mg daily, furosemide (at least per our office chart) 40 mg b.i.d., metolazone 2.5 mg daily, spironolactone 25 mg daily, metoprolol 25 mg daily, glipizide, pantoprazole, atorvastatin, Xarelto, sertraline, Ambien, and some p.r.n. alprazolam. ALLERGIES: None known. FAMILY HISTORY: Unavailable. SOCIAL HISTORY: The patient has an address in [facility]. He is retired. He has a significant male partner of long-term. REVIEW OF SYSTEMS: Unavailable. PHYSICAL EXAMINATION: GENERAL: He is an obese gentleman who does not look to be 79 years old, he looks somewhat younger than that. He is in the ICU, intubated. VITAL SIGNS: Blood pressure 98/50. Heart rhythm is paced and regular in the 60s, oxygen saturation 100%. HEENT: Shows that he is orally intubated. NECK: Supple. CHEST: Fairly clear bilaterally, symmetrical breath sounds. HEART: Paced as noted above. ABDOMEN: Obese, has active bowel sounds. Abdomen is not distended. Remarkably, he has no abdominal wall edema. EXTREMITIES: He does not have much in the way of peripheral edema either. He has diminished pedal pulses. Chest x-ray shows signs of pulmonary edema. He has scattered bilateral infiltrates and vascular redistribution changes. LABORATORY DATA: Sodium 138, potassium 4.4, chloride 96, bicarbonate 42, BUN 30, creatinine 1.9, glucose 140, calcium 9.7. White count 10.1, hemoglobin 11.6, hematocrit 37.8, platelets 203,000. Urinalysis on presentation, specific gravity greater than 1.030, pH 5.0, 1+ protein. Negative dipstick and negative microscopic exam. Initial blood gas, pH 7.299, pCO2 of 79.5, pO2 of 81.0, lactate was 1.7. ASSESSMENT: 1. Respiratory failure with hypercapnia and hypoxemia. He has longstanding chronic obstructive pulmonary disease and is a chronic CO2 retainer. His serum bicarb is dramatically elevated consistent with this. He has now been intubated and appears sedated and comfortable in the ICU. Repeat blood gas showed some improvement in his pCO2 and as it corrects over time, he will have to correct [facility] [address] [place] [address] CONSULTATION Name: JOHN ORTIZ Room #: 247-P ADM IN M.R.#: [id number] Admission: 08/02/19 Attend Phys: Germán Carrillo MD Discharge: Date of : 39 Report #: [id number] his bicarbonate also. 2. Congestive heart failure, chronic. He is chronically on the 3 diuretics as noted above. He is not that dramatically volume overloaded on exam. His chest x-ray would certainly argue otherwise. On that basis, he needs continued diuresis. We will put him back on 80 mg of furosemide q. 8 hours. We may need to add additional diuretics if that is not efficacious. 3. Chronic kidney disease stage 3. At times, he is borderline higher than that. As noted above, his creatinine level has varied from 1.5-2.0 over the past year. He has the single kidney after a prior nephrectomy. He has had mild proteinuria in the past. His blood pressure is a bit on the low side now. As his respiratory status improves, hopefully we will see a more moderate blood pressure as his renal perfusion and then urine output as well as evidence of clearance should all improve. 4. Coronary artery disease with prior myocardial infarctions and revascularization. 5. Morbid obesity as noted above. 6. History of chronic lymphedema, although he is actually remarkably free of edema at this time. PLAN: 1. We will get him back on his furosemide 80 mg q. 8 hours to continue to get diuresis. 2. Follow up labs in the morning. 3. Check urinalysis. 4. We will follow along closely in the care of this acutely and chronically ill gentleman. By: [id number] Kennedy Gibbs MD /nt
[2019-08-02 12:03] LABS: BE(vivo) 8.9 mmol/L (-2 to +3); HCO3 38.2 mmol/L (22.0-26.0); PCO2 79.5 mmHg (35.0-45.0); pH 7.299 (7.360-7.450); sO2 94.2 % (92.0-98.0)
[2019-08-02 12:07] LABS: HEMATOCRIT 37.8 % (42.0-52.0); HEMOGLOBIN 11.6 gm/dL (14.0-18.0); MCH 25.6 pg (26.0-34.0); MCHC 30.7 g/dL (28.0-37.0); MCV 83.4 fL (80.0-100.0); PLATELET COUNT 203 thou/uL (150-400); RBC 4.53 mil/uL (4.50-6.00); RDW 16.3 % (10.5-14.5); WBC 10.1 thou/uL (4.0-11.0)
[2019-08-02 12:09] LABS: CALCIUM 9.7 mg/dL (8.5-10.1); CREATININE 1.9 mg/dL (0.7-1.3); POTASSIUM 4.4 mmol/L (3.5-5.1)
[2019-08-02 12:18] LABS: TROPONIN-I 0.2 ng/mL (<0.06)
[2019-08-02 12:30] LABS: ABSOLUTE NEUTROPHILS 8.4 thou/uL (1.4-8.2); METAMYELOCYTES 1 %
[2019-08-02 12:32] LABS: ANISOCYTOSIS 1+; OVALOCYTES FEW; POIKILOCYTOSIS SLIGHT
[2019-08-02 12:38] LABS: APTT 33.8 Seconds (24.5-32.8); INR 1.6; PROTIME 16.9 Seconds (9.3-11.4)
[2019-08-02 13:41] LABS: HCO3 39.2 mmol/L (22.0-26.0); PO2 74.6 mmHg (80.0-100.0); sO2 92.9 % (92.0-98.0)
[2019-08-02 13:42] LABS: pH 7.308 (7.360-7.450)
[2019-08-02 15:50] LABS: URINE BLOOD NEGATIVE (Negative); URINE CLARITY CLOUDY; URINE COLOR YELLOW; URINE GLUCOSE-RANDOM* NEGATIVE (Negative); URINE KETONES TRACE (Negative); URINE LEUKOCYTES-REFLEX NEGATIVE (Negative); URINE NITRITE-REFLEX NEGATIVE (Negative); URINE PROTEIN (DIPSTICK) 1+ (Negative); URINE SPECIFIC GRAVITY >= 1.030 (1.005-1.035)
[2019-08-02 15:51] LABS: ICTOTEST (BILI CONFIRMATORY) Negative (Negative); URINE BILIRUBIN NEGATIVE (Negative)
[2019-08-02 15:58] LABS: AMORPHOUS URATES Many /LPF (None Seen); BACTERIA-REFLEX 1-9 Few /HPF (None Seen); CASTS None Seen /LPF (None Seen); SQUAMOUS None Seen /LPF (0-3); URINE RBC 0-2 Rare /HPF (0-2); URINE WBC-REFLEX None Seen /HPF (0-5)
[2019-08-02 16:15] LABS: BE(vivo) 9.9 mmol/L (-2 to +3); HCO3 37.6 mmol/L (22.0-26.0); PO2 146.3 mmHg (80.0-100.0); pH 7.363 (7.360-7.450); sO2 98.7 % (92.0-98.0)
[2019-08-02 16:17] LABS: PCO2 67.7 mmHg (35.0-45.0)
--- NOTE | 2019-08-02 20:01 | NUR ---
Admission note and end of shift note. pt admit to icu intubated, sedated chf Dr. rowland and dr sparks consults. Versed given x 1 for sedation. awaiting fentanyl and versed gtt from RX. Weaned down to 70% fi02
--- NOTE | 2019-08-02 20:15 | NUR ---
Pt care assumed at 1900. Pt intubated and sedated on vent. Significant other, Laif, here to visit. Monitor v-paced. Pt has small amount of blood tinged urine in dixon despite Lasix given in ED earlier. Dr. Gibbs here to see patient, orders received.
[2019-08-02 22:57] LABS: URINE BILIRUBIN 2+ (Negative); URINE BLOOD 3+ (Negative); URINE CLARITY CLOUDY; URINE COLOR BROWN; URINE GLUCOSE-RANDOM* TRACE (Negative); URINE KETONES TRACE (Negative); URINE LEUKOCYTES TRACE (Negative); URINE NITRITE NEGATIVE (Negative); URINE PROTEIN (DIPSTICK) 3+ (Negative); URINE SPECIFIC GRAVITY 1.025 (1.005-1.035)
[2019-08-02 23:21] LABS: AMORPHOUS URATES Many /LPF (None Seen); BACTERIA 1-9 Few /HPF (None Seen); CASTS None Seen /LPF (None Seen); MUCUS 0-3 Light strn/LPF (None Seen); SQUAMOUS 0-3 Few /LPF (0-3); URINE RBC >20 Many /HPF (0-2); URINE WBC 0-5 Rare /HPF (0-5)
[2019-08-03] VITALS (45 sets, daily range): BP systolic 88–148; BP diastolic 45–105
[2019-08-03 06:07] LABS: ABSOLUTE NEUTROPHILS 5.8 thou/uL (1.4-8.2); BASOPHILS 1.1 % (0.0-2.0); EOSINOPHILS 2.8 % (0.0-3.0); HEMATOCRIT 33.1 % (42.0-52.0); HEMOGLOBIN 10.2 gm/dL (14.0-18.0); LYMPHOCYTES 9.8 % (24.0-44.0); MCH 25.3 pg (26.0-34.0); MCHC 30.8 g/dL (28.0-37.0); MCV 82.3 fL (80.0-100.0); MONOCYTES 10.7 % (1.0-8.0); PLATELET COUNT 153 thou/uL (150-400); POLYS 75.6 % (36.0-66.0); RBC 4.02 mil/uL (4.50-6.00); RDW 16.5 % (10.5-14.5); WBC 7.6 thou/uL (4.0-11.0)
[2019-08-03 06:26] LABS: CREATININE 2.2 mg/dL (0.7-1.3); MAGNESIUM 1.6 mg/dL (1.8-2.4); POTASSIUM 4.1 mmol/L (3.5-5.1)
[2019-08-03 07:27] LABS: BE(vivo) 12.9 mmol/L (-2 to +3); HCO3 40.7 mmol/L (22.0-26.0); pH 7.378 (7.360-7.450); sO2 95.7 % (92.0-98.0)
[2019-08-03 07:28] LABS: PCO2 70.7 mmHg (35.0-45.0)
--- NOTE | 2019-08-03 08:43 | EKG ---
[place] [address] [facility] [place] [place] [address] ELECTROCARDIOGRAM REPORT Name: JOHN ORTIZ Room #: 247-P ADM IN M.R.#: [id number] Admission: 08/02/19 Attend Phys: Germán Carrillo MD Discharge: Date of : 39 Report #: [id number] THIS REPORT FOR: //name// [facility] ED Test Date: 2019-08-02 Test Time: 11:48:13 Pat Name: JOHN ORTIZ Department: Room: [facility] Gender: M Web Publisher: : 1940 Requested By: Herb Guerrero Order Number: [id number] MD: Abundio Vallejo Measurements Intervals [place] Rate: 84 P: -82 DC: 162 QRS: 261 QRSD: 177 T: 69 QT: 442 QTc: 523 Interpretive Statements Atrial-sensed ventricular-paced rhythm No further analysis attempted due to paced rhythm Baseline wander in lead(s) V1 no previous ECGs available for comparison Electronically Signed On 08-03-2019 8:43:24 CDT by Abundio Vallejo [email or web address] <ELECTRONICALLY SIGNED> By: Abundio Vallejo MD, [facility] 08/03/19 0843 [id number] [id number] Abundio Vallejo MD, [facility] /EPI
--- NOTE | 2019-08-03 09:02 | EKG ---
[place] [address] [facility] [place] [address] ELECTROCARDIOGRAM REPORT Name: JOHN ORTIZ Room #: 247-P ADM IN M.R.#: [id number] Admission: 08/02/19 Attend Phys: Germán Carrillo MD Discharge: Date of : 39 Report #: [id number] THIS REPORT FOR: //name// [facility] Test Date: 2019-08-03 Test Time: 07:14:09 Pat Name: JOHN ORTIZ Department: Room: 247 P Gender: M Claims Collector: TIFFANIE : 1940 Requested By: Sanjuana Pierre Order Number: [id number] MD: Abundio Vallejo Measurements Intervals [place] Rate: 65 P: -56 WI: 155 QRS: 254 QRSD: 187 T: 51 QT: 499 QTc: 519 Interpretive Statements Atrial-sensed ventricular-paced rhythm No further analysis attempted due to paced rhythm Compared to ECG 01/20/2018 14:38:47 No significant change was found Electronically Signed On 08-03-2019 9:02:08 CDT by Abundio Vallejo [email or web address] <ELECTRONICALLY SIGNED> By: Abundio Vallejo MD, [facility] 08/03/19901 3 3 Abundio Vallejo MD, [facility] /EPI
--- NOTE | 2019-08-03 11:04 | NUR ---
If pt requires intubation >48 hrs, recommend start nutrition support of Vital High Protein at 30ml/hr and goal of 65ml/hr.
--- NOTE | 2019-08-03 11:59 | 2DMMODE ---
[facility] [place] [address] 2 D/M-MODE ECHOCARDIOGRAM Name: DIANAJOHN P Room #: 247-P ADM IN [facility]#: [id number] Admission: 08/02/19 Attend Phys: Germán Carrillo MD Discharge: Date of : 38 Date of Service: 08/03/19 1159 Report #: [id number] THIS REPORT FOR: //name// APPROVED REPORT Study performed: 08/03/2019 09:38:19 EXAM: Comprehensive 2D, Doppler, and color-flow Echocardiogram Patient Location: ICU Room #: [facility] Status: routine BSA: 2.30 HR: 70 bpm Rhythm: Pacemaker Other Information Study Quality: Adequate Indications ICD: Congestive Heart Failure COPD Diabetes Dyspnea CAD Echo Enhancing Agent Indication: Rule out thrombus Agent(s) / Amount(s) Used: Optison 8 cc 2D Dimensions IVC: 26.00 mm Aortic Valve AoV Peak Terence.: 1.52 m/s AO Peak Gr.: 9.22 mmHg LVOT Max P.21 mmHg LVOT Max V: 1.14 m/s Mitral Valve E/A Ratio: 0.6 MV Decel. Time: 241.78 ms MV E Max Terence.: 0.69 m/s MV A Terence.: 1.14 m/s MV PHT: 70.12 ms [facility] [address] [place] [address] 2 D/M-MODE ECHOCARDIOGRAM Name: JOHN ORTIZ Room #: 247-P ADM IN M.R.#: [id number] Admission: 08/02/19 Attend Phys: Germán Carrillo MD Discharge: Date of : 38 Date of Service: 08/03/19 1159 Report #: [id number] IVRT: 152.25 ms Pulmonary Valve PV Peak Terence.: 0.61 m/s PV Peak Gr.: 1.51 mmHg Tricuspid Valve TR Peak Terence.: 3.00 m/s TR Peak Gr.: 36.02 mmHg PA Pressure: 51.00 mmHg Left Ventricle The left ventricle is normal size. There is normal left ventricular wall thickness. Left ventricular systolic function is hyperdynamic. LVEF is 15-20%. Grade I - abnormal relaxation pattern. Right Ventricle The right ventricle is normal size. The right ventricular systolic function is normal. Atria Left atrium is borderline dilated. The right atrium size is normal. Aortic Valve The aortic valve is normal in structure. Trace aortic regurgitation. There is no aortic valvular stenosis. Mitral Valve The mitral valve is normal in structure. Mild mitral regurgitation. No evidence of mitral valve stenosis. Tricuspid Valve The tricuspid valve is normal in structure. There is mild tricuspid regurgitation. Estimated PAP 51 mmHg. There is moderate pulmonary hypertension. Pulmonic Valve The pulmonary valve is normal in structure. There is no pulmonic valvular regurgitation. Great Vessels The aortic root is normal in size. Pericardium There is no pericardial effusion. [facility] [address] [place] [address] 2 D/M-MODE ECHOCARDIOGRAM Name: JOHN ORTIZ Room #: 247-P ADM IN M.R.#: [id number] Admission: 08/02/19 Attend Phys: Germán Carrillo MD Discharge: Date of : 38 Date of Service: 08/03/19 1159 Report #: [id number] <Conclusion> The left ventricle is normal size. LVEF is 15-20%. Left atrium is borderline dilated. The aortic valve is normal in structure. Trace aortic regurgitation. The mitral valve is normal in structure. Mild mitral regurgitation. The tricuspid valve is normal in structure. There is mild tricuspid regurgitation. Estimated PAP 51 mmHg. There is moderate pulmonary hypertension. The pulmonary valve is normal in structure. There is no pericardial effusion. <ELECTRONICALLY SIGNED> By: Toño Renee MD 08/03/19 1159 1159 115 Toño Renee MD /INF
--- NOTE | 2019-08-03 17:44 | NUR ---
End of shift note. Pt remains sedated on vent but follows all commands. Laxix gtt started today. VSS.
[2019-08-04] VITALS (45 sets, daily range): BP systolic 123–183; BP diastolic 69–93
[2019-08-04 06:05] LABS: ALBUMIN 2.9 g/dL (3.4-5.0); CALCIUM 9.4 mg/dL (8.5-10.1); CREATININE 1.8 mg/dL (0.7-1.3); PHOSPHORUS 3.6 mg/dL (2.5-4.9); POTASSIUM 3.9 mmol/L (3.5-5.1)
--- NOTE | 2019-08-04 16:03 | NUR ---
INITIAL ASSESSMENT: SW reviewed chart and spoke with attending physician. Pt was admitted from home due to acute CHF exacerbation/acute on chronic respiratory failure. Pt is currently intubated and sedated. Vent weaning trials to be started today. Pt is on IV abx and lasix gtt. ELI spoke with pt's s/o, Barb Mahoney ([phone]). Introduced role of SW. Pt lives at home with Laif. Prior to admission, pt was not amulatory. Pt has josefina lift in home and w/c. Pt has home O2 in place. Pt has been to [facility] in the past and has used [facility]. Pt's s/o is unsure of name of PCP, as pt has many doctors. Pt has used the [facility] for primary care. Pt will need therapy evals once extubated and able to participate. No weekend discharge planned. SW is following to assist as needed with discharge planning.
[2019-08-05] VITALS (40 sets, daily range): BP systolic 98–155; BP diastolic 55–82
--- NOTE | 2019-08-05 01:16 | NUR ---
PATIENT IS SEDATED ON DRIP. PATIENT IS INTUBATED ON VENTTV 550 AC 12 PEEP5 AND FIO2 50% STATING 98%. PATIENT HAS OGTUBE TO LIS. PATIENT IS NPO. Q6H ACCUCHECKS. PATIENT HAS A JIMENEZ PATIENT IS ON LASIX DRIP. LBM WAS THE 12TH. PATIENT IS PENDING POSSIBLE TUBE FEED ORDER TODAY. PATIENT IS IN RESTRAINTS. PATIENT IS Q2TURN PATIENT BP HAS BEEN STABLE NO TEMPATURE. PATIENT IS V PACED ON TELE. PATIENT DENIES PAIN. PATIENTS PUPLS ARE EQUAL AND REACTIVE PATIENT CAN FOLLOW COMMANDS. PAITENT IS PROGRESSING TO GOALS. WCM.
[2019-08-05 05:03] LABS: ALBUMIN 2.5 g/dL (3.4-5.0); CALCIUM 8.8 mg/dL (8.5-10.1); CREATININE 1.4 mg/dL (0.7-1.3); PHOSPHORUS 3.7 mg/dL (2.5-4.9)
[2019-08-05 05:05] LABS: POTASSIUM 4.1 mmol/L (3.5-5.1)
[2019-08-05 06:03] LABS: HEMATOCRIT 36.3 % (42.0-52.0); HEMOGLOBIN 11.2 gm/dL (14.0-18.0); MCH 25.3 pg (26.0-34.0); MCHC 30.9 g/dL (28.0-37.0); RBC 4.43 mil/uL (4.50-6.00); RDW 16.6 % (10.5-14.5)
--- NOTE | 2019-08-05 09:42 | NUR ---
Pt on moderate sedation. No response to verbal commands. Afebrile (97.9). LS clear. On vent. ET tube and OG tube in place. V. Paced rhythm. Edema +2 to +3 on LE. Skin tears on the edge of abd to groin area. Lasix gtt @10. Versed @4 and fentanyl @50mcg. Doyle in place. UO appropriate. Restraintw x [address] 0903-Versed & Fentanyl was tunred off as Dr. Ramos ordered.
[2019-08-06] VITALS (39 sets, daily range): BP systolic 91–143; BP diastolic 50–80
[2019-08-06 05:27] LABS: HEMATOCRIT 34.8 % (42.0-52.0); HEMOGLOBIN 10.6 gm/dL (14.0-18.0); MCH 24.9 pg (26.0-34.0); MCHC 30.6 g/dL (28.0-37.0); MCV 81.6 fL (80.0-100.0); RBC 4.26 mil/uL (4.50-6.00); RDW 16.7 % (10.5-14.5); WBC 11.2 thou/uL (4.0-11.0)
[2019-08-06 05:39] LABS: ALBUMIN 2.5 g/dL (3.4-5.0); CALCIUM 9.3 mg/dL (8.5-10.1); CREATININE 1.5 mg/dL (0.7-1.3); PHOSPHORUS 3.7 mg/dL (2.5-4.9); POTASSIUM 3.5 mmol/L (3.5-5.1)
--- NOTE | 2019-08-06 07:07 | NUR ---
No changes or events over night. Monitor remains v-paced.
--- NOTE | 2019-08-06 08:27 | NUR ---
Pt is on moderate sedation. Hard to arouse. Propofol @10mcg. LS coarse and diminished. V.paced rhythm. Edema is down to +1 on foot and hands. Lasix 10mcg. Restraints x [address] Doyle and perineum care was done. Pt was turned to L side. Will continue to monitor
[2019-08-06 10:45] LABS: BE(vivo) 15.8 mmol/L (-2 to +3); HCO3 43.3 mmol/L (22.0-26.0); PO2 74.3 mmHg (80.0-100.0); pH 7.419 (7.360-7.450); sO2 94.6 % (92.0-98.0)
[2019-08-06 10:46] LABS: PCO2 68.4 mmHg (35.0-45.0)
[2019-08-07] VITALS (33 sets, daily range): BP systolic 92–139; BP diastolic 48–77
[2019-08-07 04:58] LABS: HEMATOCRIT 33.6 % (42.0-52.0); HEMOGLOBIN 10.3 gm/dL (14.0-18.0); MCH 25.1 pg (26.0-34.0); MCHC 30.8 g/dL (28.0-37.0); MCV 81.4 fL (80.0-100.0); RBC 4.12 mil/uL (4.50-6.00); RDW 16.9 % (10.5-14.5); WBC 9.9 thou/uL (4.0-11.0)
[2019-08-07 05:21] LABS: ALBUMIN 2.2 g/dL (3.4-5.0); CALCIUM 9.5 mg/dL (8.5-10.1); CREATININE 1.5 mg/dL (0.7-1.3); PHOSPHORUS 3.6 mg/dL (2.5-4.9); POTASSIUM 3.1 mmol/L (3.5-5.1)
--- NOTE | 2019-08-07 13:23 | NUR ---
VASCULAR ACCESS CONSULTED FOR CVAD. RIJ WAS WIDELY PATENT, AFTER NEEDLE INSERTION AND GOOD BLOOD RETURN UNABLE TO PASS GUIDEWIRE MORE THAN FEW CM. UNABLE TO ATTEMPT LIJ DUE TO PACEMEKER ON L. RN NOTIFIED AND IR CONSULTED FOR CVAD
--- NOTE | 2019-08-07 19:21 | NUR ---
ASSUMED CARE @ 0700, PT ASSESSMENTS AND VSS COMPLETE PER PROTOCOL. PT DOWN TO IR FOR CENTRAL LINE PLACEMENT. PT HAD AN UNEVENTFUL DAY.
[2019-08-08] VITALS (25 sets, daily range): BP systolic 94–125; BP diastolic 52–70
[2019-08-08 05:26] LABS: BE(vivo) 16.4 mmol/L (-2 to +3); HCO3 42.5 mmol/L (22.0-26.0); PCO2 59.5 mmHg (35.0-45.0); PO2 132.6 mmHg (80.0-100.0); pH 7.472 (7.360-7.450); sO2 98.7 % (92.0-98.0)
[2019-08-08 05:29] LABS: CALCIUM 9.3 mg/dL (8.5-10.1); CREATININE 1.5 mg/dL (0.7-1.3); POTASSIUM 3.1 mmol/L (3.5-5.1)
--- NOTE | 2019-08-08 05:32 | NUR ---
Pt remains stable in this shift. No event tonight. Continue to be jayna TF very well.
--- NOTE | 2019-08-08 17:00 | NUR ---
PT IS ALERT AND OREINTED. SON AT BEDSIDE TODAY ASKING PT ABOUT FINANCES. LEAD SOFTWARE DEVELOPMENT ENGINEER INNVOLVED. PHYSCH CONSULT ORDERED PER DR. VALLECILLO RULE OUT DEMENTIA. LUNGS ARE DIMINISHED. SINUS RHTYHM TO SINUS TACH ON THE AD TRAFFICKER. ON HONEY THICKEN LIQUIDS AT THIS TIME. JIMENEZ TO DD WITH EMEKA URINE PRESENT. PT HAS ARTHRITIS IN HANDS. DENIES ANY PAIN RESTING AT THIS TIME. WILL CONTINUE TO ASSESS AND MONITOR PER NURSING.
--- NOTE | 2019-08-08 17:14 | NUR ---
PT REMAINS ON THE VENT. TOLERATING TUBE FEEDING WELL. V-PACED ON THE MONITOR AND VITALS STABLE. SEDATION VACATION. NO COMMANDS FOLLOWED. FAMILY AT BEDSIDE TODAY VISITING PT. SUCTIONED CLEAR SECREATIONS NOTED. TURN 2 HOURS PER NURSING. NO WEANING TRIALS TODAY PER PULMONARY WILL CONTINUE TO ASSESS AND MONITOR PER NURSING
[2019-08-09] VITALS (24 sets, daily range): BP systolic 96–133; BP diastolic 54–79
[2019-08-09 05:29] LABS: CALCIUM 9.4 mg/dL (8.5-10.1); CREATININE 1.4 mg/dL (0.7-1.3); PHOSPHORUS 3.9 mg/dL (2.5-4.9); POTASSIUM 3.2 mmol/L (3.5-5.1)
--- NOTE | 2019-08-09 16:47 | NUR ---
PT IS OFF SEDATAION TODAY. DOES NOT FOLLOW ANY COMMANDS. RESPONDS TO PAIN STIMULI. V-PACED ON THE MONITOR. VS STABLE. RESTRAINTS BILATERAL. TURN Q 2 HOURS. TOLERATING TUBE FEEDING NO RESIDUAL. JIMENEZ TO DD WITH EMEKA URINE OUTPUT. BREATHING TREATMENTS PER RT SUCTION WHITE CLEAR SECREATIONS OUT MINIMAL NOTED. LUNGS ARE DIMINISHED. REMAINS ON THE VENT. WILL CONTINUE TO ASSESS AND MONITOR PER NURSING
--- NOTE | 2019-08-09 16:50 | NUR ---
PT IS ALERT AND ORIENTED X4. LUNGS ARE DIMINISHED. ON THICKEN LIQUIDS AND PUREE DIET. TOLERATING WELL.SINUS RHYTHM TO SINUS TACH ON THE MONITOR. UP WITH PHYSICAL THERAPY TRANSFER ORDERS TO MED SURG. VITALS STABLE. REHAB FACILTY MET WITH PT THIS EVENING DISCUSSING PLAN OF CARE. PT VERBALIZES UNDERSTANDING WILL NEED FURTHER EDUATION ON TREATMENT PLAN AT THIS TIME. ON ROOM AIR.
[2019-08-10] VITALS (25 sets, daily range): BP systolic 97–138; BP diastolic 50–89
[2019-08-10 05:23] LABS: CALCIUM 9.5 mg/dL (8.5-10.1); CREATININE 1.4 mg/dL (0.7-1.3); PHOSPHORUS 3.3 mg/dL (2.5-4.9); POTASSIUM 3.4 mmol/L (3.5-5.1)
--- NOTE | 2019-08-10 05:40 | NUR ---
Pt remains off sedative in this shift. No changes of neurological status. VS remains stable. No event tonight. Will continue to monitor.
--- NOTE | 2019-08-10 08:51 | NUR ---
PT HAS NOT BEEN ABLE TO PARTICIPATE IN ATTEMPTED ASSESSMENT OVER PAST 3 CONSECUTIVE DAYS. PER DEPT POLICY, REQUEST NEW P.T. ORDERS WHEN PT IS DEEMED ABLE TO PARTICIPATE IN THERAPY EVALUATION.
--- NOTE | 2019-08-10 09:17 | NUR ---
OT INTERVENTION ATTEMPTED SINCE 08/03 W/PATIENT UNABLE TO PARTICIPATE. PLEASE REORDER OCCUPATIONAL THERAPY WHEN PATIENT MORE RESPONSIVE.
--- NOTE | 2019-08-10 10:10 | NUR ---
Tubefeeding placed on hold for potential weaning from vent this am per Dr. Carrillo recommendation.
--- NOTE | 2019-08-10 16:46 | NUR ---
FOLLOWING [facility] DC PLANNING. CLINICAL INFO REVIEWED. REMAINS ON VENT, SEDATION OFF OVER 24 HOURS, OPENS EYES. PER PULM NOTE, NOT QUITE READY FOR WEANING R/T ENCEPHALOPATHY. PT HAS HX SEVERE COPD WITH LOW FEV1. WILL NEED POST ACUTE STAY.
[2019-08-11] VITALS (24 sets, daily range): BP systolic 106–131; BP diastolic 60–80
[2019-08-11 05:36] LABS: HEMOGLOBIN 9.9 gm/dL (14.0-18.0); MCV 80.7 fL (80.0-100.0); RBC 3.96 mil/uL (4.50-6.00); RDW 17.2 % (10.5-14.5); WBC 8.3 thou/uL (4.0-11.0)
[2019-08-11 06:05] LABS: ALBUMIN 2.2 g/dL (3.4-5.0); CALCIUM 9.6 mg/dL (8.5-10.1); CREATININE 1.2 mg/dL (0.7-1.3); PHOSPHORUS 3.5 mg/dL (2.5-4.9); POTASSIUM 3.3 mmol/L (3.5-5.1)
--- NOTE | 2019-08-11 17:45 | NUR ---
Shift summary: No sedation x > 48 hrs. Pt more alert, following simple commands. Nods head yes/no. Moving left side more than right. Favors gaze to left. VSS. Afebrile. Generalized edema. K+ 3.3, replaced as ordered. Will recheck in AM. Pt on CPAP 5 PS 5 x 5 h 45 min. Tolerated well. Lungs clear with suctioning. Blood tinged yellow secretions. Tolerating feeding. Free water increased to 400ml q 6 hrs. Beneprotein (2 packets) with each water bolus. Will recheck sodium in am. No stool this shift. Blood sugars controlled. Doyle with adequate output. Plan of care reviewed and updated as able. Pt making slow progress towards discharge goals.
[2019-08-12] VITALS (23 sets, daily range): BP systolic 104–133; BP diastolic 50–76
--- NOTE | 2019-08-12 04:24 | NUR ---
PT. REMAINS OFF SEDATION. NEUROLOGICAL STATUS IMPROVEMENT. PT. IS PROGRESSING TOWARDS GOALS. WILL CPAP TRIAL TODAY. WILL CONTINUE TO MONITOR
[2019-08-12 05:35] LABS: HEMATOCRIT 31.5 % (42.0-52.0); HEMOGLOBIN 9.8 gm/dL (14.0-18.0); MCH 24.9 pg (26.0-34.0); MCV 80.5 fL (80.0-100.0); RBC 3.91 mil/uL (4.50-6.00); RDW 16.6 % (10.5-14.5); WBC 7.8 thou/uL (4.0-11.0)
[2019-08-12 05:58] LABS: ALBUMIN 2.2 g/dL (3.4-5.0); CALCIUM 9.5 mg/dL (8.5-10.1); CREATININE 1.1 mg/dL (0.7-1.3); PHOSPHORUS 3.3 mg/dL (2.5-4.9); POTASSIUM 3.3 mmol/L (3.5-5.1)
[2019-08-12 15:06] LABS: BE(vivo) 13.1 mmol/L (-2 to +3); PCO2 56.7 mmHg (35.0-45.0); PO2 114.3 mmHg (80.0-100.0); pH 7.455 (7.360-7.450); sO2 98.3 % (92.0-98.0)
--- NOTE | 2019-08-12 18:17 | NUR ---
PT IS AWAKE. FOLLOWS COMMANDS. FAMILY TODAY AT BEDSIDE FOR SUPPORT. REMAINS ON THE VENT. WEANING TRAIL DONE TODAY WITH ABG AND NOTIFIED PULMONARY OF RESULTS. V-PACED ON THE MONITOR. TOLERATING TUBE FEEDING NO RESIDUAL NOTED. LUNGS ARE COARSE TO DIMINISHED. MODERATE TO COPOUS CLEAR SECREATIONS NOTED WITH SUCTIONING TODAY. REPLACE POTASSIUM TODAY WITH THERAPUTIC LAB AFTER REPLACEMENT. WILL COBTINUE TO ASSESS AND MONITOR PER NURSING
[2019-08-13 05:23] LABS: ALBUMIN 2.1 g/dL (3.4-5.0); CALCIUM 9.8 mg/dL (8.5-10.1); CREATININE 1.2 mg/dL (0.7-1.3); PHOSPHORUS 3.7 mg/dL (2.5-4.9); POTASSIUM 3.4 mmol/L (3.5-5.1)
--- NOTE | 2019-08-13 17:28 | NUR ---
PATIENT ALERT AND AWAKE, NO COMPLAINTS OF PAIN. ON VENTILATOR 40%FIO2, OXYGEN REMAINED ABOVE 92%. V-PACED ON QUALITY CONTROL ASSOCIATE. OG REPLACE, PATIENT TOLERATING TUBE FEEDING, DID NOT ADMINISTER BENEPROTIEN DUE TO PREVIOUS OG CLOGGING. DR. GUERRERO AWARE. JIMENEZ PATENT AND DRAINING. BLOOD SUGAR MONITORED. WEANING TRIAL NOT COMPLETED TODAY, SPOKE WITH DR. BERKOWITZ, PLANNING ON BRONCHOSCOPY TOMORROW, CONSENT COMPLETED. PATIENT AND FAMILY VERBALIZED UNDERSTANDING OF PROCEDURE. NO SIGNS OF ACUTE DISTRESS NOED AT THIS TIME. WILL CONTINUE TO MONITOR.
[2019-08-13 19:00] VITALS: BP 103/55
[2019-08-13 20:00] VITALS: BP 101/52
[2019-08-13 21:00] VITALS: BP 122/64
[2019-08-13 22:00] VITALS: BP 119/60
[2019-08-13 23:00] VITALS: BP 108/56
[2019-08-14] VITALS (59 sets, daily range): BP systolic 96–128; BP diastolic 47–73
--- NOTE | 2019-08-14 05:08 | NUR ---
Pt was treated for abdominal pain, it was just after he received his beneprotein and 400 ml water flush, so, not sure if this was the source of discomfort. He has been having stools, and is tolerating his tube feeding. his vitals have been stable, except for a low grade temp noted. Pt has been V Paced, and had a brief period where he was AV paced. His urine output was only 450 ml's this morning, clear dark yellow urine voided. The bed is in the low/locked position, siderails up x 4, and the call light is within reach.
[2019-08-14 05:28] LABS: ALBUMIN 2.1 g/dL (3.4-5.0); CALCIUM 9.5 mg/dL (8.5-10.1); CREATININE 1.3 mg/dL (0.7-1.3); PHOSPHORUS 3.5 mg/dL (2.5-4.9); POTASSIUM 3.3 mmol/L (3.5-5.1)
[2019-08-14 05:53] LABS: BE(vivo) 9.7 mmol/L (-2 to +3); HCO3 34.7 mmol/L (22.0-26.0); PCO2 48.2 mmHg (35.0-45.0); PO2 103.9 mmHg (80.0-100.0); pH 7.475 (7.360-7.450)
[2019-08-14 13:08] LABS: BE(vivo) 8.5 mmol/L (-2 to +3); HCO3 33.3 mmol/L (22.0-26.0); PCO2 47.1 mmHg (35.0-45.0); PO2 100.2 mmHg (80.0-100.0); pH 7.467 (7.360-7.450); sO2 97.8 % (92.0-98.0)
--- NOTE | 2019-08-14 16:44 | NUR ---
INTERVENTIONS AND ASSESSMENTS DOCCUMENTED. PATIENT ON MECHNAICAL VENTILATION AT SHIFT CHANGE AND FOLLOWING COMMANDS. TUBE FEEDING PLACED ON HOLD RELATED TO BRONCOSCOPY. DR. BERKOWITZ AT BEDSIDE DOING A BRONCOSCOPY. PATIENT SHOWING SIGNS OF DISCOMFORT. PATIENT GIVEN VERSED. POST PROCEDURE, PATIENT DROWSY. PATIENT PLACED ON CPAP TRIAL ONCE ALERT PER DR. BERKOWITZ ORDERS. PATIENT TOLERTING IT WELL. ORDERS FOR EXTUBATION RECIECED FROM DR. BERKOWITZ. RT AT BEDSIDE TO EXTUBATE PATIENT. PATIENT EXTUBATED AND ON FACE MASK WITH NO DIFFICULTIES. PATIENT RESTING CALMLY WATCHING TV ASKING FOR FLUIDS. PATIENT EDUCATED ON POST EXTUBATION PROCESS AND UPDATED ON THE PLAN OF CARE. THE PLAN OF CARE IS TO CONTINUE TO MAINTAIN INCREASED OXYGENATION, AND MONITOR AIRWAY.
[2019-08-15] VITALS (12 sets, daily range): BP systolic 89–130; BP diastolic 51–610
[2019-08-15 05:56] LABS: ALBUMIN 2.1 g/dL (3.4-5.0); CALCIUM 9.3 mg/dL (8.5-10.1); CREATININE 1.1 mg/dL (0.7-1.3); PHOSPHORUS 3.6 mg/dL (2.5-4.9); POTASSIUM 3.5 mmol/L (3.5-5.1)
--- NOTE | 2019-08-15 07:58 | NUR ---
PT CONVERSANT TO STAFF. ABLE TO COMMUNICATE NEEDS. REMAINS CONFUSED TO EVENTS CONT PULMONARY TOILET. ENC C/DB. NO RESP DISTRESS DURING NOC. 02SAT WNL. REMAINS NPO. GOOD UO. PROGRESSING TOWARD GOALS. CONT PLAN OF CARE
--- NOTE | 2019-08-15 16:22 | NUR ---
MET WITH PATIENT WHO WAS EXTUBATED TODAY. ASKED IF HE KNEW WERE HE WAS AND HE STATED "WHY DO I GET ASKED THAT ALL THE TIME." HE NEVER ANSWERED. REVIEWED ROLE ASKED IF HE RECALLED [facility] "I COULDNT WAIT TO LEAVE." BUT STATED HE WOULD GO BACK IF NEEDED. TOLD PATIENT PLAN TO CALL PATNER. HE STATED CHECK ON LAIF, SYED BEEN TOGETHER 43 YEARS. ATTEMPTED TO CALL S/O NO ANSEW LEFT MESSAGE.
--- NOTE | 2019-08-15 18:26 | NUR ---
INTERVENTIONS AND ASSESSMENTS DOCCUMENTED. PATIENT RESTING QUIETLY DURING SHIFT CHANGE. PATIENT ALERT BUT ONLY ORIENTED TO PLAN OF CARE. OCCASIONALLY HAS A CHANGE IN SUBJECT DURING CONVERSATIONS. PATIENT CONSULT WITH SPEECH THERAPY. PATIENT ADVANCED FROM NPO TO NECTAR THICK MECHANICAL SOFT DIET. PATIENT'S AT BEDSIDE AND EDUCATED ABOUT PLAN OF CARE. FLUIDS INITIATED ON PATIENT. TRANSFER ORDERS RECIEVED. NURSE ON 3W GIVEN REPORT. PATIENT TRANSFERED TO 3W ON [facility]. PATIENT ALERT AND PLEASANT WHEN ARRIVING TO THE UNIT.
[2019-08-16 03:20] VITALS: BP 126/75
--- NOTE | 2019-08-16 04:46 | NUR ---
PATIENT IS PROGRESSING SLOWLY IN HIS CARE PLAN. VITAL SIGNS STABLE WITH PATIENT HAVING NO COMPLAINTS, NOR NURSE NOT PERCEIVING, ANY PAIN OR NAUSEA. LIMITED ORIENTATION, PATIENT IS PLEASANTLY CONFUSED AND EASILY DIRECTABLE. BREATHING STABLE EVIDENCED BY ASSESSMENT AND CONTINUOUS SATURATION MONITOR. SWALLOW PRECAUTIONS FOLLOWED. FREQUENT TURNS WITH INCONTINENCE CHECKS AND BARRIER CREAM APPLICATION TO PROTECT SKIN. CONTINUE PLAN OF CARE.
[2019-08-16 06:02] LABS: ALBUMIN 2.2 g/dL (3.4-5.0); CALCIUM 9.1 mg/dL (8.5-10.1); CREATININE 1.2 mg/dL (0.7-1.3); PHOSPHORUS 3.2 mg/dL (2.5-4.9); POTASSIUM 3.2 mmol/L (3.5-5.1)
[2019-08-16 08:00] VITALS: BP 127/87
[2019-08-16 12:00] VITALS: BP 115/71
--- NOTE | 2019-08-16 13:38 | NUR ---
ELI reviewed chart and spoke with nursing and attending physician. Pt was transferred to from ICU and is progressing towards goals for discharge. Recommendation made for post-acute care. ELI met with pt at bedside to discuss post acute care. ELI discussed with pt going to [facility], as he has been there in the past. Pt states he doesn't really want to go there and would prefer to stay here at [facility]. ELI discussed case with rehabilitation program coordinator, who will put in a consult. ELI spoke with pt's s/o, Barb, via phone to provide update and discuss discharge plan. Pt's s/o states that [facility] would be an option, as pt has expressed interest in being able to assist more in transfers and start ambulation. Per Barb, pt was able to assist with transfers up until about a year ago. Barb states that if [facility] is not an option, they would prefer pt go home with HH. Awaiting input from at this time. ELI is following to assist as needed with discharge planning.
[2019-08-16 15:00] VITALS: BP 127/77
--- NOTE | 2019-08-16 15:26 | NUR ---
PATIENT SEEN BY DR. ELIZABETH THIS DATE. PATIENT WITH DYSPHGIA, ENCEPHALOPATHY AND LOW ENDURANCE. PHYSICAL THERAPY TO REASSESS PATIENT. PATIENT PLOF IS LOW LEVEL. WILL CONTINUE TO FOLLOW.
[2019-08-16 19:20] VITALS: BP 126/84
[2019-08-17 03:45] VITALS: BP 117/69
--- NOTE | 2019-08-17 05:17 | NUR ---
Pt. is pleasantly confused and oriented to person only. V paced per tele. Generalized edema. O2 at 3L/NC , no respiratory distress. Maintained swallow precautions. He has been repositioned q2 hrs for comfort.He has generalized weakness. Incontinent of loose bm x1 this am. Bed alarm for safety. Making some progress towards care plan goals.
[2019-08-17 07:15] VITALS: BP 109/67
[2019-08-17 11:01] VITALS: BP 104/60
--- NOTE | 2019-08-17 13:36 | NUR ---
ELI reviewed chart and spoke with nursing and attending physician. Pt is progressing towards goals for discharge. ELI discussed case with [facility] outreach liaison, who states pt is too low level. Recommendation made for SNF or home with HH. Attending physician spoke with pt's s/o, Barb, who requests HH referral. Pt has used [facility]. ELI left voice message for Laif, to provide update. Discharge home is anticipated for tomorrow. farm planner to fax referral to [facility]. ELI is following to assist as needed with discharge planning.
--- NOTE | 2019-08-17 13:55 | NUR ---
DISCHARGE PLANNING. ANTICIPATED DISCHARGE TO HOME WITH HOME HEALTH SERVICES. PATIENT REFERRAL FAXED TO [facility]. PATIENT HAS USED [facility] IN THE PAST AND WOULD LIKE TO USE THEM AGAIN AT DISCHARGE. CALL PLACED TO CESAR TO NOTIFY. AWAITING RESPONSE. FOLLOWING.
[2019-08-17 15:01] VITALS: BP 118/72
--- NOTE | 2019-08-17 15:45 | NUR ---
Assumed care approx. 0700 this AM. Patient reports no SOA. Patient SOB with exertion when turning and cleaning patient up in bed. Patient still tolerating 3LNC well with 02 sat average of 92%-97%. Cont. pulse ox present. Small BM noted today. Patient turned Q2H. No acute changes or events at this time. Patient progressing toward goals.
[2019-08-17 19:42] VITALS: BP 109/76
[2019-08-18 03:43] VITALS: BP 116/64
[2019-08-18 06:09] LABS: ALBUMIN 2.2 g/dL (3.4-5.0); CALCIUM 8.4 mg/dL (8.5-10.1); CREATININE 1.1 mg/dL (0.7-1.3); PHOSPHORUS 3.5 mg/dL (2.5-4.9)
--- NOTE | 2019-08-18 07:27 | NUR ---
PATIENT IS PROGRESSING SLOWLY IN CARE PLAN. VITAL SIGNS STABLE WITH PATIENT NOT STATING, NOT NURSE PERCEIVING ANY PAIN ON BEHALF OF PATIENT. HE WAS ABLE TO STATE THAT HE FELT "SICK TO HIS STOMACH" AND WAS TREATED APPROPRIATELY THROUGH MEDICATION AND NON PHARMACOLOGICAL INTERVENTION. ORIENTED ONLY TO SELF AND PLACE AT TIMES, PATIENT REMAINS CONFUSED. BREATHING STABLE ON OXYGEN EVIDENCED BY ASSESSMENT AND READINGS FROM CONTINUOUS SATURATION MONITOR. SWALLOW PRECAUTIONS FOLLOWED WITH NURSE PROVIDING MANY OPPORTUNITIES FOR ORAL REFRESHMENT. TURNS FREQUENTLY WITH INCONTINENCE CHECKS. PATIENTS FRIEND/CAREGIVER REQUESTED MOLDER SWEEP TO CALL HIM IF POSSIBLE TO SPEAK ABOUT POTENTIAL DISCHARGE SOON. CONTINUE PLAN OF CARE.
[2019-08-18 08:03] VITALS: BP 101/59
[2019-08-18] MEDS ORDERED: PULMICORT0.5 MG/21 INH (09:12)
--- NOTE | 2019-08-18 09:52 | NUR ---
SW received consult to contact pt's s/o regarding discharge plan. SW reviewed chart. Pt has discharge orders to go home today with HH services. SW left voice message for Laif, stating pt has discharge orders. SW is following to assist as needed with discharge planning.
[2019-08-18 09:53] VITALS: BP 101/59
[2019-08-18 11:30] VITALS: BP 122/77
--- NOTE | 2019-08-18 16:38 | NUR ---
care of pt assumed this am @ ~0700. pt noted to be awake, watching tv. pt noted to be forgetful, calling out for his friend/md do resident urgent care Barb Mahoney. pt reoriented to hospital and not at home where Barb would be. pt aox3-4 today. pt denies soa and n/v today. pt states he wears o2 at home @ 3lt nc. pt noted to be unable to feed himself, assistance provided w/ each meal. pt w/ a good appetite for food and fluid. ivf's infusing, but stopped this afternoon dt dc orders w/ ambulance arrival expected at 1500. pt w/ dixon functional and w/o problems today, but will plan to dc once [facility] ambulance arrival. pt bedrest today. call placed to Barb Mahoney re: pt's anticipated dc today.
== END 2019-08-18 17:39 | disposition home health service (06) | DRG 207 ==
LOC: ER 11:43 → EROBS 14:31 → ICU 14:31 → 3W 08-15 18:20
PROVIDERS: Emergency Medicine; Hospitalist; Internal Medicine Nephrology; Internal Medicine Pulmonary Disease; Nurse Practitioner; Pediatrics; ADMIT Hospitalist
PROC: 5A1955Z Respiratory Ventilation, Greater than 96 Consecutive Hours (ICD-10-PCS; principal; 2019-08-02)
PROC: 0BH17EZ Insertion of Endotracheal Airway into Trachea, Via Natural or Artificial Opening (ICD-10-PCS; principal; 2019-08-02)
PROC: 4B02XSZ Measurement of Cardiac Pacemaker, External Approach (ICD-10-PCS; 2019-08-04)
PROC: 02HV33Z Insertion of Infusion Device into Superior Vena Cava, Percutaneous Approach (ICD-10-PCS; 2019-08-07)
PROC: B548ZZA Ultrasonography of Superior Vena Cava, Guidance (ICD-10-PCS; 2019-08-07)
PROC: B5181ZA Fluoroscopy of Superior Vena Cava using Low Osmolar Contrast, Guidance (ICD-10-PCS; 2019-08-07)
PROC: 3E1F88Z Irrigation of Respiratory Tract using Irrigating Substance, Via Natural or Artificial Opening Endoscopic (ICD-10-PCS; 2019-08-14)
PROC: 5A09357 Assistance with Respiratory Ventilation, Less than 24 Consecutive Hours, Continuous Positive Airway Pressure (ICD-10-PCS; 2019-08-14)
DX: J96.21 Acute and chronic respiratory failure with hypoxia (principal); I50.43 Acute on chronic combined systolic (congestive) and diastolic (congestive) heart failure; G92 Toxic encephalopathy; I13.0 Hypertensive heart and chronic kidney disease with heart failure and stage 1 through stage 4 chronic kidney disease, or unspecified chronic kidney disease; N17.9 Acute kidney failure, unspecified; G72.81 Critical illness myopathy; E11.22 Type 2 diabetes mellitus with diabetic chronic kidney disease; E78.5 Hyperlipidemia, unspecified; E66.01 Morbid (severe) obesity due to excess calories; Z68.38 Body mass index [BMI] 38.0-38.9, adult; N18.3 Chronic kidney disease, stage 3 (moderate); J96.22 Acute and chronic respiratory failure with hypercapnia; J44.9 Chronic obstructive pulmonary disease, unspecified; E78.00 Pure hypercholesterolemia, unspecified; I25.10 Atherosclerotic heart disease of native coronary artery without angina pectoris; Z96.649 Presence of unspecified artificial hip joint; Z96.659 Presence of unspecified artificial knee joint; E87.70 Fluid overload, unspecified; F41.9 Anxiety disorder, unspecified; F32.9 Major depressive disorder, single episode, unspecified; I48.0 Paroxysmal atrial fibrillation; I27.20 Pulmonary hypertension, unspecified; E87.6 Hypokalemia; I25.5 Ischemic cardiomyopathy; Z90.81 Acquired absence of spleen; I25.2 Old myocardial infarction; Z86.73 Personal history of transient ischemic attack (TIA), and cerebral infarction without residual deficits; Z95.1 Presence of aortocoronary bypass graft; Z87.81 Personal history of (healed) traumatic fracture; Z87.891 Personal history of nicotine dependence; Z90.5 Acquired absence of kidney; Z95.5 Presence of coronary angioplasty implant and graft; Z95.828 Presence of other vascular implants and grafts
CPT/HCPCS: 10078; 10879

== ENCOUNTER 2019-08-20 17:59 | Emergency (ER) | payer OTHER, MEDICARE ==
[~2019-08-20] VITALS: Ht 185.4 cm; Wt 133.4 kg
[~2019-08-20 17:59] MED LIST changes: +PULMICORT0.5 MG/21 INH
[2019-08-20 18:12] LABS: ABSOLUTE NEUTROPHILS 6.8 thou/uL (1.4-8.2); BASOPHILS 0.9 % (0.0-2.0); EOSINOPHILS 3.7 % (0.0-3.0); HEMATOCRIT 30.6 % (42.0-52.0); HEMOGLOBIN 9.4 gm/dL (14.0-18.0); LYMPHOCYTES 10.3 % (24.0-44.0); MCH 25.1 pg (26.0-34.0); MCHC 30.8 g/dL (28.0-37.0); MCV 81.8 fL (80.0-100.0); MONOCYTES 5.9 % (1.0-8.0); PLATELET COUNT 234 thou/uL (150-400); POLYS 79.2 % (36.0-66.0); RBC 3.74 mil/uL (4.50-6.00); RDW 17.1 % (10.5-14.5); WBC 8.6 thou/uL (4.0-11.0)
[2019-08-20 18:16] LABS: BE(vivo) 4.6 mmol/L (-2 to +3); HCO3 30.4 mmol/L (22.0-26.0); PCO2 51.3 mmHg (35.0-45.0); PO2 82.1 mmHg (80.0-100.0); pH 7.391 (7.360-7.450); sO2 95.9 % (92.0-98.0)
[2019-08-20 18:25] LABS: CREATININE 1.2 mg/dL (0.7-1.3); POTASSIUM 4.4 mmol/L (3.5-5.1)
[2019-08-20 18:35] LABS: ALBUMIN 2.3 g/dL (3.4-5.0); MAGNESIUM 1.4 mg/dL (1.8-2.4); TOTAL BILIRUBIN 0.6 mg/dL (<0.1-1.0); TOTAL PROTEIN 5.9 g/dL (6.4-8.2); TROPONIN-I 0.07 ng/mL (<0.06)
[2019-08-20 20:05] VITALS: BP 135/70
--- NOTE | 2019-08-22 13:59 | EKG ---
[place] [address] [facility] [place] [address] ELECTROCARDIOGRAM REPORT Name: JOHN ORTIZ Room #: [facility] Amy#: [id number] Admission: 08/20/19 Attend Phys: Discharge: 08/20/19 Date of : 38 Report #: [id number] THIS REPORT FOR: //name// [facility] ED Test Date: 2019-08-20 Test Time: 18:07:22 Pat Name: JOHN ORTIZ Department: Room: Gender: [employer] Principal: ANTHONY : 1940 Requested By: Terry Encinas Order Number: [id number] MD: Js Reich Measurements Intervals [place] Rate: 77 P: KS: QRS: 256 QRSD: 183 T: 62 QT: 471 QTc: 534 Interpretive Statements Sinus with ventricular-paced rhythm No further analysis attempted due to paced rhythm Compared to ECG 08/03/2019 07:14:09 Electronically Signed On 08-22-2019 13:59:35 CDT by Js Reich [email or web address] <ELECTRONICALLY SIGNED> By: Js Reich MD 08/22/19 1359 06 06 Js Reich MD /PASTORA
== END 2019-08-20 21:00 | disposition home or self-care (01) ==
LOC: ER 17:59
PROVIDERS: Emergency Medicine
DX: J44.1 Chronic obstructive pulmonary disease with (acute) exacerbation (principal); I11.0 Hypertensive heart disease with heart failure; I50.9 Heart failure, unspecified; I25.2 Old myocardial infarction; I48.91 Unspecified atrial fibrillation; F41.9 Anxiety disorder, unspecified; E66.01 Morbid (severe) obesity due to excess calories; Z68.38 Body mass index [BMI] 38.0-38.9, adult; Z95.2 Presence of prosthetic heart valve; Z96.652 Presence of left artificial knee joint; Z87.891 Personal history of nicotine dependence

== ENCOUNTER 2019-10-25 14:18 | Inpatient (IN) | payer OTHER, MEDICARE ==
[2019-10-25] VITALS (10 sets, daily range): BP systolic 85–113; BP diastolic 45–64
[~2019-10-25] VITALS: Ht 182.9 cm; Wt 140.6 kg
--- NOTE | ~2019-10-25 | HC ---
[facility] [place] [address] CONSULTATION Name: JOHN ORTIZ Room #: 205-P [facility] IN M.R.#: [id number] Admission: 10/25/19 Attend Phys: Mikel De La Cruz Discharge: Date of : 38 Report #: [id number] THIS REPORT FOR: //name// CC: Mikel Aguilar PALLIATIVE CARE CONSULTATION REQUESTING PHYSICIAN: Dr. Bhagat. CHIEF COMPLAINT: Acute hypoxic respiratory failure. HISTORY OF PRESENT ILLNESS: The patient is an 79-year-old male who presented on 10/25/2019 of acute hypoxic respiratory failure with 70% on room air on arrival. He was intubated due to respiratory distress, has subsequently been extubated. He has a history of chronic combined congestive heart failure, found to have 15-20% EF, which is reduced from his prior during this hospitalization. He additionally has history of severe COPD. He has had significant progression of debility over the last year and has been essentially bed and wheelchair bound over the past year. He has a significant support and a significant other that is present for my visit. Additionally, he has a hair tinter who is able to provide for much of his cares during the day. The patient is understanding that he has significant medical disease and is wishing to have options with regards to care, but ultimately wishes to return home. He reports at this time that he is currently comfortable with his present medical condition. PAST MEDICAL HISTORY: Cerebrovascular accident, atrial fibrillation, coronary artery disease, chronic combined CHF, COPD, type 2 diabetes, history of DVT. PAST SURGICAL HISTORY: Coronary stent placement, pacemaker, defibrillator, IVC filter placement. SOCIAL HISTORY: He has significant debility with no ambulation over the last year. Again, lives at home environment with significant other, the patient's brother. Additionally, there is a caregiver during the daytime hours. FAMILY HISTORY: Noncontributory. ALLERGIES: No known drug allergies. MEDICATIONS: These were reviewed and agree with current medication use. REVIEW OF SYSTEMS: GENERAL: Denies any recent significant changes with regards to weight gain or weight loss. RESPIRATORY: Does report shortness of breath and cough. CARDIOVASCULAR: Does report occasional chest discomfort, none currently. [facility] [address] [place] [address] CONSULTATION Name: JOHN ORTIZ Room #: 205-P [facility] IN M.R.#: [id number] Admission: 10/25/19 Attend Phys: Mikel De La Cruz Discharge: Date of : 38 Report #: [id number] PHYSICAL EXAMINATION: VITAL SIGNS: Temperature 36.7, pulse 77, respirations 19, blood pressure 86/44, 98% on room air. GENERAL: The patient is alert. He is oriented x 3. He is in no acute distress. HEENT: Extraocular muscles appear to be intact. Normocephalic and atraumatic. No scleral icterus. No conjunctival injection. RESPIRATORY: Does not appear to have accessory muscle use. CARDIOVASCULAR: He does have lower extremity edema noted. LABORATORY DATA: These include creatinine 1.1. ASSESSMENT AND PLAN: 1. Acute hypoxic respiratory failure. Again, this is his hospital diagnosis. The reason for his intubation and extubation discussed, however, this in the context with chronic obstructive pulmonary disease and additionally which is severe in nature, 23% FEV1 in addition to his chronic combined congestive heart failure with severely reduced EF. The patient is understanding of this. He could potentially proceed to a home setting with the caregiving that he appears to have at this point in time that he would need significant support. Did discuss the possibility of having again further evaluations from therapy to determine what would be the best setting to transition to. Although, it appears that he is not likely to regain significant amounts of ADL abilities. The patient is considering whether or not he would wish to have palliative care in the form of hospice, although he certainly appeared amenable to this at this time. He did confirm does not desire to have resuscitation in the future, at least in the form of CPR, but certainly it appears to be in the form of CPR and intubation. I spent approximately 30 minutes in discussion of advanced care planning today. 2. Chronic obstructive pulmonary disease, severe in type and nature, again will be progressive. This combined with congestive heart failure certainly portends a bad prognosis. 3. Chronic combined congestive heart failure. Again, poor overall prognosis. Given this, again, discussion as above. Thank you very much for this consultation. Please let us know if there is any further followup, but certainly we are waiting decision with regards to which step he wants to proceed towards and we will await further therapy recommendations. By: [id number] Joey Bellamy, /nt
[2019-10-25 14:57] LABS: URINE BILIRUBIN NEGATIVE (Negative); URINE BLOOD NEGATIVE (Negative); URINE CLARITY CLEAR; URINE COLOR YELLOW; URINE GLUCOSE-RANDOM* NEGATIVE (Negative); URINE KETONES NEGATIVE (Negative); URINE LEUKOCYTES-REFLEX NEGATIVE (Negative); URINE NITRITE-REFLEX NEGATIVE (Negative); URINE PROTEIN (DIPSTICK) NEGATIVE (Negative); URINE UROBILINOGEN 0.2 E.U./dl (0.2-1.0)
[2019-10-25 15:05] LABS: AMP/METHAMP Negative (Negative); BARBITURATES Negative (Negative); BENZODIAZEPINES Negative (Negative); COCAINE Negative (Negative); METHADONE Negative (Negative); OPIATES Negative (Negative); PCP Negative (Negative)
[2019-10-25 15:15] LABS: ABSOLUTE NEUTROPHILS 6.4 thou/uL (1.4-8.2); HEMOGLOBIN 10.5 gm/dL (14.0-18.0); MCH 23.2 pg (26.0-34.0)
[2019-10-25 15:19] LABS: BE(vivo) 9.9 mmol/L (-2 to +3); HCO3 37.8 mmol/L (22.0-26.0); PCO2 70.7 mmHg (35.0-45.0); pH 7.346 (7.360-7.450); sO2 98.6 % (92.0-98.0)
[2019-10-25 15:19] LABS: BASOPHILS 0.9 % (0.0-2.0); EOSINOPHILS 0.6 % (0.0-3.0); LYMPHOCYTES 7.3 % (24.0-44.0); MCHC 29.9 g/dL (28.0-37.0); MCV 77.6 fL (80.0-100.0); MONOCYTES 10.6 % (1.0-8.0); PLATELET COUNT 199 thou/uL (150-400); POLYS 80.6 % (36.0-66.0); RBC 4.52 mil/uL (4.50-6.00); RDW 17.4 % (10.5-14.5); WBC 7.9 thou/uL (4.0-11.0)
[2019-10-25 15:31] LABS: CALCIUM 9.8 mg/dL (8.5-10.1); CREATININE 1.5 mg/dL (0.7-1.3)
[2019-10-25 15:35] LABS: TROPONIN-I 0.15 ng/mL (<0.06)
[2019-10-25 17:03] LABS: ANISOCYTOSIS 1+; PLATELET ESTIMATE NORMAL
[2019-10-25 17:11] LABS: BE(vivo) 5.1 mmol/L (-2 to +3); HCO3 31.6 mmol/L (22.0-26.0); PCO2 56.6 mmHg (35.0-45.0); PO2 182.5 mmHg (80.0-100.0); pH 7.365 (7.360-7.450); sO2 99.2 % (92.0-98.0)
--- NOTE | 2019-10-25 18:45 | NUR ---
Patient arrived at ICU room at 1830. He was placed on the monitor and cleaned up. IV Team arrived shortly therafter. Report to be given to restaurant shift supervisor for continuation of care.
--- NOTE | 2019-10-25 19:36 | NUR ---
VASCULAR TEAM NOTE R IJ TL PLACED WITH U.S GUIDANCE PER HOSPITAL P&P. PATIENT INTUBATED AND SEDATED DURING PROCEDURE. 3ML OF 1% LIDOCAINE GIVEN SUB Q PRIOR TO PROCEDURE. PATIENT PREPPED AND DRAPED IN NORMAL STERILE FASHION. VEIN CANNULATED WITH ONE ATTEMPT. GUIDEWIRE ADVANCED EASILY. VEIN DILATED AND 25CM CATHETER ADVANCED TO 17CM INTERNAL AND 8CM EXTERNAL. ALL LUMENS FLUSH AND DRAW EASILY. CXR FOR CONFIRMATION OF PLACEMENT. LINE RELEASED FOR IMMEDIATE USE TO RN.
--- NOTE | 2019-10-25 19:48 | NUR ---
ASSUMED CARE OF PT AT 1900. AT THAT TIME VASCULAR ACCESS TEAM INSERTING A CENTRAL LINE. PT INTUBATED AND SEDATED ON [place] GTT. PT HYPOTENSIVE DESPITE FLUID RESUCITATION PER ED ORDERS. CONTACTED Malik MALDONADO NP AT 1910. ORDERS FOR LEVOPHED GTT AND PULMONOLOGY CONSULT GIVEN. DR BERKOWITZ NOTIFIED OF PT'S CURRENT STATUS. HE RECOMMENDS VASOPRESSORS IN LIGHT OF THE PT'S POOR LVEF AND BNP. WILL INITIATE LEVOPHED AND MONITOR PT'S BLOOD PRESSURE.
[2019-10-26] VITALS (77 sets, daily range): BP systolic 90–135; BP diastolic 44–71
[2019-10-26 05:12] LABS: HEMATOCRIT 34.7 % (42.0-52.0); HEMOGLOBIN 10.3 gm/dL (14.0-18.0); MCH 22.9 pg (26.0-34.0); MCHC 29.8 g/dL (28.0-37.0); MCV 76.8 fL (80.0-100.0); RBC 4.52 mil/uL (4.50-6.00); RDW 17.6 % (10.5-14.5); WBC 6.7 thou/uL (4.0-11.0)
[2019-10-26 05:30] LABS: ALBUMIN 2.8 g/dL (3.4-5.0); CALCIUM 8.9 mg/dL (8.5-10.1); CREATININE 1.4 mg/dL (0.7-1.3); POTASSIUM 4.4 mmol/L (3.5-5.1); TOTAL BILIRUBIN 0.8 mg/dL (<0.1-1.0); TOTAL PROTEIN 6.1 g/dL (6.4-8.2)
--- NOTE | 2019-10-26 17:29 | EKG ---
[place] [address] [facility] [place] [address] ELECTROCARDIOGRAM REPORT Name: JOHN ORTIZ Room #: 242-P ADM IN M.R.#: [id number] Admission: 10/25/19 Attend Phys: Mikel De La Cruz Discharge: Date of : 38 Report #: [id number] THIS REPORT FOR: //name// 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: : 1940 Requested By: Roque Camarena Order Number: [id number] MD: Abundio Vallejo Measurements Intervals [place] Rate: 60 P: -80 MA: 119 QRS: 268 QRSD: 184 T: 56 QT: 516 QTc: 516 Interpretive Statements A-V dual-paced rhythm with some inhibition No further analysis attempted due to paced rhythm Compared to ECG 08/20/2019 18:07:22 No significant changes Electronically Signed On 10-26-2019 17:28:43 IT HELP DESK ASSOCIATE by Abundio Vallejo [email or web address] <ELECTRONICALLY SIGNED> By: Abundio Vallejo MD, [facility] 10/26/19 1728 1638 1638 Abundio Vallejo MD, [facility] /EPI
--- NOTE | 2019-10-26 19:34 | NUR ---
FAMILY VISITED PT TODAY. UPDATED ON PLAN OF CARE AND PT PROGRESS. ETT ADVANCED AND CHECKED PLACEMENT VIA CXR PER PHYSICIAN ORDER. PROPOFOL STARTED FOR VENT MANEGMENT AND AGITATION. LEVOPHED WEANED OFF. PT SLOWLY PROGRESSING TOWARDS PLAN OF CARE.
[2019-10-27] VITALS (47 sets, daily range): BP systolic 89–131; BP diastolic 45–69
--- NOTE | 2019-10-27 06:25 | NUR ---
INTUBATED AND ON VENT; SEDATED WITH PROPOFOL AND VERSED GTTS. NO CHANGES OVERNIGHT. OFF LEVO GTT SINCE YESTERDAY-DAY SHIFT. PT HAS MAINTAINED MAP >60 THROUGHOUT THE NIGHT. WILL CONTINUE TO MONITOR.
[2019-10-27 07:50] LABS: ALBUMIN 2.2 g/dL (3.4-5.0); CALCIUM 9.4 mg/dL (8.5-10.1); CREATININE 1.2 mg/dL (0.7-1.3); MAGNESIUM 1.7 mg/dL (1.8-2.4); PHOSPHORUS 2.6 mg/dL (2.5-4.9); POTASSIUM 3.5 mmol/L (3.5-5.1); TOTAL BILIRUBIN 0.6 mg/dL (<0.1-1.0); TOTAL PROTEIN 5.3 g/dL (6.4-8.2)
[2019-10-27 11:09] LABS: HCO3 35.4 mmol/L (22.0-26.0); PCO2 57.8 mmHg (35.0-45.0); pH 7.405 (7.360-7.450)
--- NOTE | 2019-10-27 14:19 | NUR ---
CM ASSESSMENT: CASE OPENED FOR DC PLANNING. CLIICAL INFO REVIEWED. PT ADMIT WITH RESP FAILURE R/T COPD EXACERBATION. DAY 3 ON VENT. WAKING AND FOLLOWING COMMANDS. MET WITHPT'S SPOUSE IBRAHIMA AND PT AND SPOUSE ANA LILIAWON TO CM FROM PREVIOUS ADMIT 07/2019. PT LIVES IN HOUSE WITH SPOUSE AND BROTHER. SPOUSE AND ANOTHER PERSON ARE CARE GIVERS AND THEY HAVE ALL NEEDED DME IN PLACE. PT HAD REMOTELY BEEN TO ACUTE REHAB AT [facility] AND SKILLED REHAB AT [facility]. IBRAHIMA INDICATES PLAN WILL BE TO RETURN HOME WHEN MEDICALLY READY. "WE ARE DONE WITH REHAB FACILITIES." PREVIOUSLY UTILIZED [facility] BUT NOT CURRENTLY.
--- NOTE | 2019-10-27 18:44 | NUR ---
ASSESSMENTS AND INTERVENTIONS DOCCUMENTED. PATIENT TAKEN OFF SEDATION FOR WEANING TRIAL. PATIENT STILL WEAK, AND AC MODE REINTIATED. PATIENT'S PARTNER AT BEDSIDE. FAMILY UPDATED ABOUT POC. THE POC IS TO CONTINUE TO MONITOR RESPIRATORY STATUS.
[2019-10-28] VITALS (24 sets, daily range): BP systolic 109–145; BP diastolic 58–88
--- NOTE | 2019-10-28 04:27 | NUR ---
PT INTUBATED AND ON VENT. SEDATED WITH PROPOFOL GTT. PT WAKES AND FOLLOWS SIMPLE COMMANDS, BUT IS VERY WEAK. NO CHANGES OVERNIGHT. WILL CONTINUE TO MONITOR.
[2019-10-28 06:01] LABS: ALBUMIN 2.4 g/dL (3.4-5.0); CALCIUM 9.1 mg/dL (8.5-10.1); CREATININE 1.3 mg/dL (0.7-1.3); POTASSIUM 3.4 mmol/L (3.5-5.1)
[2019-10-28 15:43] LABS: BE(vivo) 8.7 mmol/L (-2 to +3); HCO3 33.8 mmol/L (22.0-26.0); PO2 68.6 mmHg (80.0-100.0); pH 7.457 (7.360-7.450); sO2 94.3 % (92.0-98.0)
--- NOTE | 2019-10-28 18:16 | NUR ---
ASSESSMENT AND INTERVENTIONS DOCCUMENTED. PATIENT REMIANS INTUBATED AND SEDATED. DR. HIMANSHU SULLIVAN, PROPL DC'D. ORDERS FOR TUBE FEEDING RECIEVED. DR. WOO BROOKS, WEANING TRIAL DONE. PATIENT STILL HAVING WEAKNESS. FAMILY UPDATED ABOUT PATIENT STATUS. THE POC IS TO CONTINUE TO MONITOR RESPIRTORY STATUS.
[2019-10-29] VITALS (24 sets, daily range): BP systolic 106–135; BP diastolic 60–83
[2019-10-29 06:43] LABS: ALBUMIN 2.6 g/dL (3.4-5.0); CREATININE 1.5 mg/dL (0.7-1.3); PHOSPHORUS 2.7 mg/dL (2.5-4.9); POTASSIUM 3.6 mmol/L (3.5-5.1)
--- NOTE | 2019-10-29 07:51 | NUR ---
PT INTUBATED AND ON VENT. PT IS ON NO SEDATION. PT WAS RESTLESS AT TIMES AND WOULD PULL HARD AT THE WRIST RESTRAINTS TO REACH FOR ET TUBE. ATIVAN GIVEN X2, BUT THE EFFECTS DID NOT LAST LONG BEFORE PT WOULD BECOME RESTLESS AGAIN. TUBE FEEDINGS STARTED YESTERDAY AFTERNOON. LOW RESIDUALS, TUBE FEEDING IS NOW AT GOAL RATE. WILL CONTINUE TO MONITOR.
--- NOTE | 2019-10-29 08:35 | HC ---
[facility] [place] [address] CONSULTATION Name: JOHN ORTIZ Room #: 242-P [facility] M.R.#: [id number] Admission: 10/25/19 Attend Phys: Mikel De La Cruz Discharge: Date of : 38 Report #: [id number] THIS REPORT FOR: //name// CC: Mikel Mayorga Akkulugari DATE OF SERVICE: 10/26/2019 REASON FOR PRESENTATION: Mental status changes. REASON FOR CONSULTATION: Chronic kidney disease. HISTORY OF PRESENT ILLNESS: This is obtained from the medical chart as the patient is currently intubated and not able to provide me with any details. He is a well-known patient to me. He is an 79-year-old with history of advanced cardiomyopathy, obstructive sleep apnea with recurrent issues with respiratory failure, known chronic kidney disease with a baseline creatinine of around 1.4. He was discharged from the hospital back in July after a very prolonged hospital course at that time, he was in the intensive care unit for an extended period of time. We had some issues managing his volume and hypernatremia. He has a very low ejection fraction and presented to the Emergency Room yesterday after being found to have an acute mental status changes by his partner. He was found to be in respiratory failure. Creatinine on presentation was 1.5. He has a history of nephrectomy in the past. I am being consulted to manage his chronic kidney disease. PAST MEDICAL HISTORY: 1. COPD. 2. Hypercapnic respiratory failure. 3. Coronary artery disease. 4. CABG. 5. Advanced cardiomyopathy with ejection fractions of 20%. 6. Pulmonary hypertension. 7. CVA. 8. Atrial fibrillation. 9. Nephrectomy. 10. DVT. 11. Status post pacemaker. ALLERGIES: None. FAMILY HISTORY: Unobtainable given the patient's mental status. SOCIAL HISTORY: He lives with his significant other. No reported drug or alcohol abuse. [facility] [address] [place] [address] CONSULTATION Name: JOHN ORTIZ Room #: 242-P [facility] ..#: [id number] Admission: 10/25/19 Attend Phys: Mikel De La Cruz Discharge: Date of : 38 Report #: [id number] REVIEW OF SYSTEMS: Unobtainable given the patient's current mental status. PHYSICAL EXAMINATION: GENERAL: The patient is intubated on a low dose Levophed. VITAL SIGNS: Temperature is 36.7, blood pressure is 86/45. HEAD AND NECK: No jugular venous distention. ET tube in place. CHEST: Bilateral rhonchi. CARDIOVASCULAR: No rub. ABDOMEN: Soft, obese. LOWER EXTREMITIES: Chronic venous stasis changes. LABORATORY DATA: Values reviewed. Blood gas from yesterday revealed a pH of 7.3 and a pCO2 of 70. Sodium 140, potassium 4.4, BUN 43, creatinine 1.4. Cultures are pending. Chest x-ray from yesterday revealed effusion on the left lung base with cardiomegaly. CT chest with IV contrast revealed bilateral pleural effusion. ASSESSMENT, IMPRESSION AND PLAN: 1. Acute respiratory failure. 2. Chronic kidney disease. 3. Severe hypercapnia. 4. Pulmonary hypertension. 5. Advanced cardiomyopathy. 6. Debility. 7. Chronic kidney disease. 8. Status post nephrectomy. 9. Diabetes mellitus. 10. Hypertension. The patient seems to be at baseline from the renal perspective, we had major issues with his fluid overload in the past. He ran into hypernatremia during his previous hospital course. At this point, septic workup has been initiated. 11. The patient was intubated and is being followed by Pulmonary. 12. I would avoid any further IV fluid given his advanced cardiomyopathy. 13. Watch electrolytes. 14. Continue with once daily dose of Lasix for now. 15. Appropriate antibiotic coverage. 16. Vent support and management per Pulmonary. 17. We will continue to follow. <ELECTRONICALLY SIGNED> By: Nancy Emerson MD 10/29/19 [id number] Nancy Emerson MD /nt
--- NOTE | 2019-10-29 08:43 | NUR ---
ALERT, CHEWING ON ETT, ENCOURAGING PT TO CHANNEL HIS ENERGY INTO TAKING DEEP BREATHS TO ALLOW FOR POTENTIAL EXTUBATION. CONTINUES CHEWING ON BITE BLOCK/ETT. WITH HIS RESTRAINTED ARMS HE PULLS TOWARD ETT. RESP EVEN AND UNLABORED, VPACED, TOLERATING TUBE FEEDINGS, ADEQUATE URINE OUTPUT.
--- NOTE | 2019-10-29 12:15 | NUR ---
TUBE FEEDING OFF, PT BRIEF CPAP TRIAL RELATED TO TV'S LESS THAN 210 AND RR-36. REPLACED ON ASSIST CONTROL. NOW DOZING, EASILY AWAKENED.
--- NOTE | 2019-10-29 19:47 | NUR ---
Received report from ANA LAURA Huston and assumed patient care. Patient is in bed and is awake and alert and follows commands. Patient noted to be on the ventilator and is biting at the ET tube. No sedation is ordered. Will continue to monitor.
[2019-10-30] VITALS (24 sets, daily range): BP systolic 99–129; BP diastolic 54–80
[2019-10-30 04:47] LABS: HEMATOCRIT 35.1 % (42.0-52.0); HEMOGLOBIN 10.6 gm/dL (14.0-18.0); MCH 22.9 pg (26.0-34.0); MCHC 30.2 g/dL (28.0-37.0); MCV 75.8 fL (80.0-100.0); RBC 4.63 mil/uL (4.50-6.00); RDW 18.3 % (10.5-14.5); WBC 8.6 thou/uL (4.0-11.0)
[2019-10-30 05:29] LABS: ALBUMIN 2.8 g/dL (3.4-5.0); CALCIUM 8.8 mg/dL (8.5-10.1); CREATININE 1.4 mg/dL (0.7-1.3); PHOSPHORUS 2.6 mg/dL (2.5-4.9); POTASSIUM 3.7 mmol/L (3.5-5.1)
--- NOTE | 2019-10-30 09:56 | NUR ---
ON THE VENT, NO SEDATION FOLLOWS COMMANDS AND NODS TO Y/N QNS AND DENIES PAIN. VITALS STABLE. CPAP TRIAL AT THIS TIME. PACEMAKER INTERROGATED BY WESLEY JOSE NP AT THE BEDSIDE. TUBEFEEDING AT GOAL, ON HOLD AT THIS TIME FOR CPAP. WILL CONTINUE WITH POC.
[2019-10-30 10:21] LABS: BE(vivo) 9.1 mmol/L (-2 to +3); HCO3 34.6 mmol/L (22.0-26.0); PCO2 51.7 mmHg (35.0-45.0); PO2 61.9 mmHg (80.0-100.0); pH 7.443 (7.360-7.450); sO2 92.2 % (92.0-98.0)
--- NOTE | 2019-10-30 13:43 | NUR ---
CPAP TRIAL SUCCESSFUL, ORDERS RECEIVED TO EXTUBATE PATIENT. RT NOTIFIED.
--- NOTE | 2019-10-30 14:37 | NUR ---
CPAP TRIAL SUCCESSFUL, ORDERS RECEIVED FOR EXTUBATION. TUBEFEEDING DC'D, PATIENT EXTUBATED AT 1355 BY RT AND PLACED ON FACE SHIELD AT40%, BIPAP IN THE ROOM FOR USE AT HS, SIGNIFICANT OTHER AT BEDSIDE.
[2019-10-31] VITALS (16 sets, daily range): BP systolic 101–147; BP diastolic 42–87
--- NOTE | 2019-10-31 03:56 | NUR ---
PATIENT IS ALERT TO SELF. CONFUSED. PATIENT Q2TURN. NO EVENTS THIS SHIFT. PATIENT CALLS OUT. DOES NOT USE CALL LIGHT. PATIENT IS ON 3.5L NC. PATIENT DENIES PAIN. PATINET RESTING COMFORTABLY IN BED. WCM. PATIENT PROGRESSING TO GOALS
--- NOTE | 2019-10-31 12:46 | NUR ---
PT EXTUBATED 10/30/19 AND ON 3 L NC TODAY. AWAKE AND ALERT, INTERMITTENT CONFUSION. DIGITAL ACCOUNT COORDINATOR AT BEDSIDE. PT IN NON AMULATORY AT HOME AND PT'S S.O. AND A CAREGIVER DO ADLS/IADLS. DC PLAN TO RETURN HOME WITH [facility] , WHO PT HAS USED IN PAST. PT HAS TRANFER ORDERS FOR CC TELE.
[2019-10-31 16:38] LABS: CALCIUM 9.3 mg/dL (8.5-10.1); CREATININE 1.2 mg/dL (0.7-1.3); POTASSIUM 3.8 mmol/L (3.5-5.1)
--- NOTE | 2019-10-31 17:08 | NUR ---
PT. ARRIVED AT FLOOR AROUND 1600; PT. ALERT TO PERSON & PLACE; NO C/O PAIN; V-PACED ON THE MONITOR; EDUCATED ABOUT FLUID RESTRICTIONS; ASSESSMENT CHARGED; MONITORING;
--- NOTE | 2019-11-01 03:45 | NUR ---
1900. PT ALERT AND ORIENTED. INTERMITENT CONFUSION. DENIES PAIN. MAINTAINED ON 3L OF 3L NASAL CANNULA. NO SIGN OF RESP. DISTRESS NOTED. PT MORE ANXIOUS AROUND MIDNIGHT. ATIVAN GIVEN X1. GENERALIZED EDEMA NOTED. BY 0000, PT HAD NOT VOIDED S/P CATHETER REMOVAL. BLADDER SCAN SHOWED RESIDUAL OF 190 CC. PT VOIDED LATER. Q2 TURNS TOLERATED. PT CURRENTLY IN A FAIR CONDITION. WILL CONTINUE TO FOLLOW PLAN OF CARE.
[2019-11-01 04:01] VITALS: BP 124/79
[2019-11-01 05:10] LABS: ABSOLUTE NEUTROPHILS 8.6 thou/uL (1.4-8.2); BASOPHILS 0.4 % (0.0-2.0); HEMOGLOBIN 10.2 gm/dL (14.0-18.0); LYMPHOCYTES 3.4 % (24.0-44.0); MCH 22.9 pg (26.0-34.0); MCHC 30.1 g/dL (28.0-37.0); MCV 76.2 fL (80.0-100.0); MONOCYTES 5.8 % (1.0-8.0); PLATELET COUNT 159 thou/uL (150-400); POLYS 90.4 % (36.0-66.0); RBC 4.46 mil/uL (4.50-6.00); RDW 18.3 % (10.5-14.5); WBC 9.6 thou/uL (4.0-11.0)
[2019-11-01 05:33] LABS: ALBUMIN 2.8 g/dL (3.4-5.0); CALCIUM 8.9 mg/dL (8.5-10.1); CREATININE 1.1 mg/dL (0.7-1.3); PHOSPHORUS 3.3 mg/dL (2.5-4.9); POTASSIUM 3.9 mmol/L (3.5-5.1); TOTAL BILIRUBIN 0.7 mg/dL (<0.1-1.0); TOTAL PROTEIN 5.6 g/dL (6.4-8.2)
[2019-11-01 07:21] VITALS: BP 138/87
[2019-11-01 07:38] LABS: BE(vivo) 5.7 mmol/L (-2 to +3); HCO3 31.5 mmol/L (22.0-26.0); PCO2 52.1 mmHg (35.0-45.0); PO2 105.2 mmHg (80.0-100.0); sO2 97.7 % (92.0-98.0)
--- NOTE | 2019-11-01 08:32 | NUR ---
PT IS NON-AMBULATORY AT BASELINE. DEPENDENT FOR TRANSFERS INTO HIS ELECTRIC W/C VIA PIA LIFT. PLAN IS FOR PT TO RETURN TO HIS HOME W/HIS SPOUSE, BROTHER AND PAID CAREGIVERS AT TIME OF HOSPITAL D/C. SKILLED P.T. IS NOT INDICATED AT THIS TIME.
[2019-11-01 11:15] VITALS: BP 119/66
[2019-11-01 16:06] VITALS: BP 123/74
[2019-11-01 20:00] VITALS: BP 118/63
--- NOTE | 2019-11-01 20:30 | NUR ---
RECEIVED PT'S CARE AROUND 0700; PT. ON BED; AWAKE; ALERT TO PERSON; LABS BACK; CARDIOLOGY NOTIFIED; NO NEW ORDERS; DR. GUERRERO ROUNDING ON PT. AROUND 0900; NOTIFIED ABOUT LABS RESULTS; DR. HEAD NOTIFIED ABOUT LAB RESULTS DURING ROUNDING; AM MEDICATIONS GIVEN; NO PROBLE SWALLOGINH; PO ANTIBIOTIC CHANGED TO LIQUID; ASSESSMENT CHARGED; CARE TRANSFER TO ANA LAURA FERRER AT 1030;
[2019-11-02 00:30] VITALS: BP 137/81
--- NOTE | 2019-11-02 04:35 | NUR ---
ASSUMED CARE AT 1900 . ASSESSMENTS DOCUMENTED. Q2 TURNS. PT INCONTINENT . ON ORAL ABX, NO FEVER, VITALS STABLE. MAINTAINED ON NECTER THICK LIQUIDS. DENIES PAIN, NAUSEA OR VOMITING. WILL CONTINUE WITH CURRENT PLAN OF CARE.
[2019-11-02 04:45] VITALS: BP 117/72
[2019-11-02 07:41] VITALS: BP 102/58
[2019-11-02 09:45] LABS: CALCIUM 8.9 mg/dL (8.5-10.1); CREATININE 1.1 mg/dL (0.7-1.3); POTASSIUM 4.3 mmol/L (3.5-5.1)
[2019-11-02 12:47] VITALS: BP 95/41
[2019-11-02 16:40] VITALS: BP 86/44
--- NOTE | 2019-11-02 17:14 | NUR ---
ASSUMED CARE OF PT APPROX 0715, A&0X3-4, SLIGHTLY FORGETFUL. SEE SEPARATE INTERVENTIONS FOR ASSESSMENTS. CARDIAC MONITORED. PT STATES HE HAS NOT AMBULATED IN 'YEARS'. HAS CAREGIVER AT HOME HE CAME TO HELP WITH BATH. HAND PLATING TECHNICIAN ARE MODERATE SO HE IS CONSIDERED A SET UP FOR MEALS VERSUS FEEDER. WILL FEED HIMSELF, OTHER TIMES HE DEMANDS THAT THE NURSE WIPE HIS MOUTH. WILL ACQUIESCE TO WIPE MOUTH THEN HAND HIM THE CLOTH FOR HIS OWN USE TO FINISH. HIS IS NOW VISITING. TURNING DOWN RT TX, HOSPICE CONSULT. IVF D/C'D THIS A.M. NO C/O PAIN EXCEPT WHEN WE REPOSITION HIM, AT TIMES HE REFUSES
[2019-11-02 20:27] VITALS: BP 119/54
[2019-11-03] VITALS (7 sets, daily range): BP systolic 92–132; BP diastolic 47–65
--- NOTE | 2019-11-03 03:12 | NUR ---
ASSUMED CARE AT 1900. PT AO X1,TO PERSON. DENIES CHEST PAIN, OR ANY DISCOMFORT. Q2 TURNS. BG MONITORED. NO INSULIN INDICATED AT HS. LOW BP AT BEGINNING OF SHIFT. 250ML NS GIVEN PER DR ORDER. BP SOME WHAT STABLE. BARRIER CREAM TO COCCYX SKIN IRITATION. MAINTANED ON NECTER THICK LIQUIDS.WILL CONTINUE TO MONITOR.
[2019-11-03 04:57] LABS: ALBUMIN 2.6 g/dL (3.4-5.0); CALCIUM 8.2 mg/dL (8.5-10.1); PHOSPHORUS 3.4 mg/dL (2.5-4.9); POTASSIUM 4.1 mmol/L (3.5-5.1)
--- NOTE | 2019-11-03 13:22 | NUR ---
Possible weekend dc to home with hh. [facility] is the pt's previous provider and they can accept at [place]. Pt and the attending discussed his prognosis and code status yesterday morning and he is now a DNR. Dr Bellamy was consulted for palliative care to discuss the pt's goals and options. He met with the pt and his sign other/dpoa Laif yesterday evening. The pt would like to continue aggressive tx and dc home with hh, but he is open to a Palliative PRODUCTION PL[facility]NER referral and hospice info visit. Table Assembler spoke with Barb this am and he indicates they would like to have info visit setup with Hospice for early next week. They are familiar with Hospice house as well and it is close to their home should he need inpt there at some point. The outside the hospital DNR form has been signed by the physician. Liaf and the pt will sign later today and the original will need to be sent home with him at [place]. Hospice notified of referral and will call Laif to schedule an info visit and Pall PRODUCTION PLANNER early next week. [facility] aware of hh referral for dc this weekend as well as pt's consideration of hospice in the future. Pt has needed dme in place at home. He will need non emergent ambulance arranged for transport home at [place]. [facility] form is on the chart along with the outside the hospital DNR form. Weekend staff will need to coordinate transport, as well as fax orders (the dc summary and instructions) to [facility] at [phone] and call their youth development professional at [phone]. A copy of the dc summary can also be faxed to [facility] at [phone] in anticipation of the home info visit next week. All parties updated.
--- NOTE | 2019-11-03 14:21 | NUR ---
FAXED REFERRAL TO [facility]. PATIENT ON SERVICE IN THE PAST. SPOKE WITH KAR IN INTAKE. SHE RECEIVED REFERRAL AND CAN ACCEPT AT DISCHARGE. FAXED REFERRAL TO HOSPICE. RECEIVED CONFIRMATION. ELI SPOKE WITH INTAKE. FAMILY REQUESTING INFO VISIT. DP TO FOLLOW.
--- NOTE | 2019-11-03 16:19 | NUR ---
PT CARE ASSUMED APPROX 0700. ASSESSMENTS CHARTED. PT DENIES PAIN AND SOA. VSS. REPORTED ANXIETY THIS AM. AFTER MEDICATED PT REPORTED RELIEF. TURNING PT Q2HRS WHEN HE COMPLIES. TOLERATING POC. DISCHARGE PLANS UPDATED AND ARRANGED FOR TOMORROW WITH FAMILY AND CASE MANAGEMENT. NO DISTRESS NOTED.
[2019-11-04] VITALS: BP 121/59
[2019-11-04 04:44] LABS: ALBUMIN 2.4 g/dL (3.4-5.0); CALCIUM 8.2 mg/dL (8.5-10.1); PHOSPHORUS 3.8 mg/dL (2.5-4.9); POTASSIUM 3.9 mmol/L (3.5-5.1)
[2019-11-04 05:08] VITALS: BP 106/63
--- NOTE | 2019-11-04 06:42 | NUR ---
Report taken from ANA LAURA MELGAR AT 2300. PT CONFUSED BUT FOLLOWING COMMAND. CHART CHECK.
[2019-11-04 07:24] VITALS: BP 116/67
[2019-11-04] MEDS ORDERED: AUGMENTIN 500-1 EACH PO (11:06)
[2019-11-04] MEDS ORDERED: PREDNISONE 20 M20 MG PO (11:06)
[2019-11-04] MEDS ORDERED: COREG6.25 MG PO (11:06)
[2019-11-04] MEDS ORDERED: TORSEMIDE20 MG PO (11:06)
[2019-11-04 11:14] VITALS: BP 124/61
[2019-11-04 11:45] VITALS: BP 121/68
--- NOTE | 2019-11-04 13:25 | NUR ---
pt resting in bed, repositioned, feeding himself thickened liquids/mechanical soft. pt's partner in to visit, discussed discharge care and home health agency, pt's partner verbalized understanding of care and pt's meds. signed consents.
--- NOTE | 2019-11-04 14:20 | NUR ---
pt left for home via non-emergency transport service, took all belongings, IV and tele removed.
== END 2019-11-04 14:21 | disposition home health service (06) | DRG 207 ==
LOC: ER 14:18 → ICU 16:49 → EROBS 16:49 → ICU 18:23 → 2N 10-31 15:53
PROVIDERS: Emergency Medicine; Hospitalist; Pediatrics; ADMIT Hospitalist
DX: J96.22 Acute and chronic respiratory failure with hypercapnia (principal); J69.0 Pneumonitis due to inhalation of food and vomit; I50.43 Acute on chronic combined systolic (congestive) and diastolic (congestive) heart failure; N17.9 Acute kidney failure, unspecified; G93.40 Encephalopathy, unspecified; Z68.41 Body mass index [BMI] 40.0-44.9, adult; E87.0 Hyperosmolality and hypernatremia; J44.1 Chronic obstructive pulmonary disease with (acute) exacerbation; J44.0 Chronic obstructive pulmonary disease with (acute) lower respiratory infection; I11.0 Hypertensive heart disease with heart failure; F41.9 Anxiety disorder, unspecified; E66.01 Morbid (severe) obesity due to excess calories; I87.2 Venous insufficiency (chronic) (peripheral); Z96.649 Presence of unspecified artificial hip joint; Z96.652 Presence of left artificial knee joint; I13.10 Hypertensive heart and chronic kidney disease without heart failure, with stage 1 through stage 4 chronic kidney disease, or unspecified chronic kidney disease; G47.33 Obstructive sleep apnea (adult) (pediatric); I25.10 Atherosclerotic heart disease of native coronary artery without angina pectoris; R53.81 Other malaise; E11.22 Type 2 diabetes mellitus with diabetic chronic kidney disease; J96.01 Acute respiratory failure with hypoxia; G47.419 Narcolepsy without cataplexy; I27.20 Pulmonary hypertension, unspecified; E78.5 Hyperlipidemia, unspecified; I48.0 Paroxysmal atrial fibrillation; N18.2 Chronic kidney disease, stage 2 (mild); R79.89 Other specified abnormal findings of blood chemistry; Z86.718 Personal history of other venous thrombosis and embolism; Z95.5 Presence of coronary angioplasty implant and graft; Z90.5 Acquired absence of kidney; Z74.01 Bed confinement status; Z95.810 Presence of automatic (implantable) cardiac defibrillator; Z79.01 Long term (current) use of anticoagulants; I25.2 Old myocardial infarction; Z95.1 Presence of aortocoronary bypass graft; Z86.73 Personal history of transient ischemic attack (TIA), and cerebral infarction without residual deficits; Z99.3 Dependence on wheelchair; Z95.828 Presence of other vascular implants and grafts; E11.65 Type 2 diabetes mellitus with hyperglycemia; Z99.81 Dependence on supplemental oxygen; Z90.81 Acquired absence of spleen; Z79.899 Other long term (current) drug therapy; Z23 Encounter for immunization
CPT/HCPCS: 10078; 10081